=== PATIENT | female | born 1935 | race Caucasian/White ===

== ENCOUNTER 2019-07-11 15:55 | Emergency (ER) | payer MEDICARE, MEDICAID ==
[~2019-07-11] VITALS: Ht 152.4 cm; Wt 68.0 kg
[2019-07-11 16:07] VITALS: BP_SYST 150
--- NOTE | 2019-07-11 16:19 | NUR ---
Patient to ER bed 8 to gown for evaluation. Side rails up. Report given to Brittany BERNSTEIN.
--- NOTE | 2019-07-11 16:20 | NUR ---
ER at bedside examining patient.
[2019-07-11] MEDS ORDERED: NACL 0.9% 1,000 ML IV ONE (16:25)
--- NOTE | 2019-07-11 16:25 | NUR ---
Patient transported to radiology via GURNEY, accompanied by RAD STAFF.
--- NOTE | 2019-07-11 16:25 | NUR ---
Royer jaramillo in EDM - 07/11/19 at 2016 by [email or web address] md SAVANNAH Nuñez at bedside examining patient.
[2019-07-11] MEDS ORDERED: LORazepam 2 MG/ML VIAL (FOR ER USE) IM ONE (16:30)
--- NOTE | 2019-07-11 16:40 | NUR ---
Returned from radiology, back to [facility].
[2019-07-11 17:09] LABS: BASOPHILS % (AUTO) 0.3 % (0.0-2.0); EOSINOPHILS # (AUTO) 0.1 K/uL (0.0-0.4); EOSINOPHILS % (AUTO) 0.9 % (0.0-4.0); HEMATOCRIT 36.4 % (36-48); HEMOGLOBIN 12.2 g/dL (12.0-16.0); LYMPHOCYTES # (AUTO) 2.4 K/uL (1.0-5.5); LYMPHOCYTES % (AUTO) 17.9 % (20.5-51.5); MEAN CORPUSCULAR HEMOGLOBIN 30 pg (27-31); MEAN CORPUSCULAR HGB CONC 34 % (32-36); MEAN CORPUSCULAR VOLUME 89 fL (79.0-98.0); MONOCYTES # (AUTO) 1.2 K/uL (0.0-1.0); MONOCYTES % (AUTO) 8.9 % (1.7-9.3); NEUTROPHILS # (AUTO) 9.6 K/uL (1.8-7.7); PLATELET COUNT (AUTO) 303 K/uL (130-430); RED BLOOD CELL COUNT(AUTO) 4.12 MIL/uL (4.2-6.2); RED CELL DISTRIBUTION WIDTH 11.9 % (9.0-15.0); WHITE BLOOD COUNT (AUTO) 13.4 K/uL (4.8-10.8)
--- NOTE | 2019-07-11 17:20 | NUR ---
ASSISTED TO RESTROOM. PT AMBULATES WITH STEADY GAIT
[2019-07-11 17:21] LABS: ANION GAP 15 (5-15); CALCIUM 9.2 mg/dL (8.4-11.0); CHLORIDE 102 mmol/L (98-107); CREATININE 2.05 mg/dL (0.55-1.30); GLUCOSE 152 mg/dL (70-99); POTASSIUM 4.1 mmol/L (3.5-5.1); SODIUM SERUM 137 mmol/L (136-145); UREA NITROGEN, BLOOD 34 mg/dL (8-21)
[2019-07-11 17:30] LABS: ALANINE AMINOTRANSFERASE 28 U/L (12-78); ALBUMIN 3.5 g/dL (3.4-4.8); ASPARTATE AMINOTRANSFERASE 18 U/L (10-37); TOTAL BILIRUBIN 0.3 mg/dL (0.0-1.0)
[2019-07-11 18:51] LABS: BILIRUBIN,URINE NEGATIVE (NEGATIVE); BLOOD, URINE NEGATIVE (NEGATIVE); CLARITY/URINE CLEAR (CLEAR); COLOR,URINE YELLOW (YELLOW); GLUCOSE,URINE NEGATIVE (NEGATIVE); KETONES,URINE NEGATIVE (NEGATIVE); LEUKOCYTE ESTERASE ,URINE 2+ (NEGATIVE); NITRITE, URINE NEGATIVE (NEGATIVE); PH,URINE 5.5 (5.0-8.0); PROTEIN URINE NEGATIVE (NEGATIVE); UROBILINOGEN,URINE 0.2 (0.2-1.0)
[2019-07-11 19:07] LABS: BACTERIA,URINE FEW /HPF (None Seen); FINE GRANULAR CASTS,URINE 0-10 /LPF (None Seen); MUCUS,URINE 1+ /LPF (None Seen); RBC,URINE 0-3 /HPF (0-3)
[2019-07-11] MEDS ORDERED: cefTRIAXone 1 GM in D5W 50 ML IV ONE (19:15)
--- NOTE | 2019-07-11 19:15 | NUR ---
pt resting comfortably, fluids infusing. pt tolerating well.
[2019-07-11] MEDS ORDERED: cefTRIAXone 1 GM VIAL ONE (19:34)
[2019-07-11 21:04] VITALS: BP_SYST 140
--- NOTE | 2019-07-11 21:04 | NUR ---
Patient given written and verbal discharge instructions and verbalizes understanding. ER MD discussed with patient the results and treatment provided. Patient in stable condition. ID arm band removed. IV catheter removed intact and dressing applied, no active bleeding. Rx of keflex given. Patient educated on pain management and to follow up with PMD. Pt states no pain upon discharge Opportunity for questions provided and answered. Medication side effect fact sheet provided.
== END 2019-07-11 21:04 | disposition home or self-care (01) ==
LOC: SED 15:55
DX: S00.01XA Abrasion of scalp, initial encounter (principal); N39.0 Urinary tract infection, site not specified; I10 Essential (primary) hypertension; E86.0 Dehydration; W01.0XXA Fall on same level from slipping, tripping and stumbling without subsequent striking against object, initial encounter; Y93.89 Activity, other specified; Y92.89 Other specified places as the place of occurrence of the external cause; Y99.8 Other external cause status
CPT/HCPCS: 36415; 70450; 80053; 81000; 84484; 85025; 87086; 93005; 96361; 96365; 96374; 99284; J0696; J2060; 96372

== ENCOUNTER 2023-09-13 16:24 | Inpatient (IN) | payer OTHER, MEDICAID ==
[~2023-09-13] VITALS: Ht 152.4 cm; Wt 83.6 kg
[2023-09-13] VITALS (9 sets, daily range): BP systolic 95–132; PULSE 69–70; RESP 6–18; TEMP 97.9; O2SAT 84–99
[~2023-09-13 16:24] MED LIST: ARIP5TAB42 GT; DIVA-72 GT; FAMO-268 GT; FURO20TA4 GT; METH-373 GT; METO-540 GT; POTA-360 GT
[2023-09-13] MEDS ORDERED: NALOXONE HCL 2 MG/2 ML SYR ONE (16:27)
[2023-09-13] MEDS ORDERED: PROPOFOL DRIP 100 ML IV ONE ×2 (16:33→16:45)
[2023-09-13] MEDS ORDERED: fentaNYL CITRATE/PF 100 MCG/2 ML AMP IVP ONE (16:45)
[2023-09-13 17:08] LABS: BASOPHILS % (AUTO) 0.3 % (0.0-2.0); EOSINOPHILS # (AUTO) 0.1 K/uL (0.0-0.4); EOSINOPHILS % (AUTO) 0.7 % (0.0-4.0); HEMOGLOBIN 9.1 g/dL (12.0-16.0); LYMPHOCYTES # (AUTO) 0.9 K/uL (1.0-5.5); LYMPHOCYTES % (AUTO) 9.1 % (20.5-51.5); MEAN CORPUSCULAR HEMOGLOBIN 31 pg (27-31); MEAN CORPUSCULAR HGB CONC 33 % (32-36); MEAN CORPUSCULAR VOLUME 95 fL (79.0-98.0); MONOCYTES # (AUTO) 0.9 K/uL (0.0-1.0); NEUTROPHILS % (AUTO) 80.9 % (40.0-70.0); PLATELET COUNT (AUTO) 129 K/uL (130-430); RED BLOOD CELL COUNT(AUTO) 2.96 MIL/uL (4.2-6.2); RED CELL DISTRIBUTION WIDTH 17.9 % (9.0-15.0); WHITE BLOOD COUNT (AUTO) 9.9 K/uL (4.8-10.8)
[2023-09-13 17:13] LABS: PROTHROMBIN TIME 10.8 SECS (9.5-12.5)
[2023-09-13 17:14] LABS: ANION GAP 1 (5-15); CALCIUM 9.7 mg/dL (8.4-11.0); CARBON DIOXIDE 34 mmol/L (23-29); CHLORIDE 100 mmol/L (98-107); CREATININE 1.36 mg/dL (0.55-1.30); GLUCOSE 155 mg/dL (74-106); POTASSIUM 5.5 mmol/L (3.5-5.1); SODIUM SERUM 135 mmol/L (136-145); UREA NITROGEN, BLOOD 47 mg/dL (8-21)
[2023-09-13 17:33] LABS: ACETAMINOPHEN 1 ug/mL (1-30); ALANINE AMINOTRANSFERASE 18 U/L (12-78); ALBUMIN 2.4 g/dL (3.4-4.8); ASPARTATE AMINOTRANSFERASE 15 U/L (10-37); CREATINE KINASE, TOTAL 14 U/L (26-192); SALICYLATE < 1 mg/dL (3-30); TOTAL BILIRUBIN 0.4 mg/dL (0.0-1.0); TOTAL PROTEIN, SERUM 6.2 g/dL (6.4-8.3)
[2023-09-13 17:38] LABS: ABG O2 SAT% ESTIMATE 99.6 % (94.0-100.0); ALLEN'S TEST POSITIVE (P); BLOOD GAS BASE EXCESS 3.8 mmol/L (-3.0-3.0); BLOOD GAS HCO3 30.7 mmol/L (21.0-27.0); BLOOD GAS PCO2 55.4 mmHg (35.0-45.0); BLOOD GAS PH 7.362 (7.350-7.450)
[2023-09-13 17:45] LABS: ALCOHOL, BLOOD < 3 mg/dL (<10)
[2023-09-13 17:52] LABS: ACETONE, SERUM NEGATIVE (NEGATIVE)
[2023-09-13] MEDS ORDERED: AZITHROMYCIN 500 MG in NS 250 ML IV SCH (18:15)
[2023-09-13] MEDS ORDERED: HYDR25TA4 GT (18:30)
[2023-09-13] MEDS ORDERED: MULT1CAP34 GT (18:30)
[2023-09-13] MEDS ORDERED: ASCO500C18 GT (18:30)
[2023-09-13] MEDS ORDERED: IPRA3AMP9 INH (18:30)
[2023-09-13] MEDS ORDERED: LOSA50TA28 GT (18:30)
[2023-09-13] MEDS ORDERED: AMIN30LI51 PO (18:30)
[2023-09-13] MEDS ORDERED: HYDR-4039 GT (18:30)
[2023-09-13] MEDS ORDERED: CLON0.1T GT (18:30)
[2023-09-13] MEDS ORDERED: cefTRIAXone 2 GM VIAL ONE (18:45)
[2023-09-13] MEDS ORDERED: AZITHROMYCIN 500 MG/VIAL (ZITHROMAX) IV ONE (18:45)
[2023-09-13] MEDS ORDERED: NACL 0.9% 1,000 ML IV ONE (20:15)
[2023-09-13] MEDS ORDERED: IPRATROPIUM/ALBUTEROL SULFATE 3 ML AMPUL.NEB (DUONEB) INH SCH (20:45)
[2023-09-13] MEDS: LevALBUTEROL HCL 1.25 MG/0.5 ML *CONC.* VIAL.NEB (XOPENEX CONC.) INH SCH (20:45)
[2023-09-13] MEDS ORDERED: LevALBUTEROL HCL 1.25 MG/0.5 ML *CONC.* VIAL.NEB (XOPENEX CONC.) INH PRN (20:45)
[2023-09-13] MEDS ORDERED: POTASSIUM CHLORIDE 10 MEQ in NACL 0.9% 1,000 ML IV SCH (21:15)
[2023-09-13] MEDS ORDERED: ONDANSETRON HCL 4 MG/2 ML VIAL IVP PRN (21:15)
[2023-09-13 21:43] LABS: BLOOD GAS HCO3 27.9 mmol/L (21.0-27.0); BLOOD GAS PCO2 38.4 mmHg (35.0-45.0); BLOOD GAS PH 7.479 (7.350-7.450); BLOOD GAS PO2 222.8 mmHg (75.0-100.0)
[2023-09-13 21:44] LABS: ABG O2 SAT% ESTIMATE 99.5 % (94.0-100.0); ALLEN'S TEST POSITIVE (P); BLOOD GAS BASE EXCESS 4.3 mmol/L (-3.0-3.0)
[2023-09-13] MEDS: ENOXAPARIN SODIUM 30 MG/0.3 ML SYRINGE SUBCUT SCH (22:08)
[2023-09-13] MEDS ORDERED: PIPERACILLIN/TAZOBACTAM 3.375 GM/VIAL (ZOSYN) IV ONE (22:13)
[2023-09-13] MEDS ORDERED: PANTOPRAZOLE SODIUM 40 MG/VIAL (PROTONIX) ONE (22:26)
[2023-09-13] MEDS: PANTOPRAZOLE SODIUM 40 MG/VIAL (PROTONIX) IVP SCH (22:32)
[2023-09-13] MEDS: NACL 0.9% 1,000 ML IV SCH (22:33)
[2023-09-13] MEDS: methylPREDNISolone SOD SUCC/PF 62.5 MG/ML VIAL IVP SCH (23:41)
[2023-09-13] MEDS: PROPOFOL DRIP 100 ML IV PRN (23:42)
[2023-09-13] MEDS: PIPERACILLIN/TAZO 3.375/DEX-IS 50 ML IV SCH (23:43)
[2023-09-14] VITALS (35 sets, daily range): BP systolic 101–140; PULSE 69–71; RESP 17–19; TEMP 98–98.8; O2SAT 91–98
[2023-09-14] MEDS ORDERED: D5W 1,000 ML IV PRN
[2023-09-14] MEDS ORDERED: GLUCOSE (DEXTROSE) ORAL GEL -Adults PO PRN
[2023-09-14] MEDS ORDERED: DEXTROSE 50% JECT 50 ML DISP.SYRIN IVP PRN
[2023-09-14] MEDS: LevALBUTEROL HCL 1.25 MG/0.5 ML *CONC.* VIAL.NEB (XOPENEX CONC.) INH SCH ×4 (01:54→19:21)
[2023-09-14 04:48] LABS: BASOPHILS % (AUTO) 0.4 % (0.0-2.0); EOSINOPHILS % (AUTO) 0.6 % (0.0-4.0); HEMATOCRIT 24.3 % (36-48); HEMOGLOBIN 7.8 g/dL (12.0-16.0); LYMPHOCYTES # (AUTO) 0.7 K/uL (1.0-5.5); MEAN CORPUSCULAR HEMOGLOBIN 30 pg (27-31); MEAN CORPUSCULAR HGB CONC 32 % (32-36); MEAN CORPUSCULAR VOLUME 94 fL (79.0-98.0); MONOCYTES # (AUTO) 0.3 K/uL (0.0-1.0); MONOCYTES % (AUTO) 5.9 % (1.7-9.3); NEUTROPHILS # (AUTO) 4.4 K/uL (1.8-7.7); NEUTROPHILS % (AUTO) 80.1 % (40.0-70.0); PLATELET COUNT (AUTO) 84 K/uL (130-430); RED BLOOD CELL COUNT(AUTO) 2.58 MIL/uL (4.2-6.2); WHITE BLOOD COUNT (AUTO) 5.5 K/uL (4.8-10.8)
[2023-09-14 05:17] LABS: ANION GAP 6 (5-15); CALCIUM 9.3 mg/dL (8.4-11.0); CARBON DIOXIDE 29 mmol/L (23-29); CHLORIDE 100 mmol/L (98-107); CREATININE 1.63 mg/dL (0.55-1.30); GLUCOSE 101 mg/dL (74-106); POTASSIUM 4.8 mmol/L (3.5-5.1); SODIUM SERUM 135 mmol/L (136-145); UREA NITROGEN, BLOOD 50 mg/dL (8-21)
[2023-09-14 05:25] LABS: CLARITY/URINE SLIGHTLY CLOUDY (CLEAR); COLOR,URINE YELLOW (YELLOW); GLUCOSE,URINE NEGATIVE (NEGATIVE); KETONES,URINE TRACE (NEGATIVE); PROTEIN URINE 2+ (NEGATIVE)
[2023-09-14 05:26] LABS: BILIRUBIN,URINE 1+ (NEGATIVE); BLOOD, URINE 2+ (NEGATIVE); LEUKOCYTE ESTERASE ,URINE TRACE (NEGATIVE); NITRITE, URINE NEGATIVE (NEGATIVE); UROBILINOGEN,URINE 0.2 (0.2-1.0)
[2023-09-14 05:28] LABS: BACTERIA,URINE RARE /HPF (None Seen)
[2023-09-14 05:30] LABS: RBC,URINE 20-50 /HPF (0-3)
[2023-09-14 05:30] LABS: ALANINE AMINOTRANSFERASE 15 U/L (12-78); ASPARTATE AMINOTRANSFERASE 18 U/L (10-37); TOTAL BILIRUBIN 0.6 mg/dL (0.0-1.0); TOTAL PROTEIN, SERUM 5.4 g/dL (6.4-8.3)
[2023-09-14 05:42] LABS: BARBITURATE, URINE NEGATIVE (NEG <=200); BENZODIAZEPINE, URINE NEGATIVE (NEG <=150); CANNABINOID, URINE NEGATIVE (NEG <=50); COCAINE, URINE NEGATIVE (NEG <=150); METHAMPHETAMINES SCREEN,URINE NEGATIVE (NEG <=500); OPIATE, URINE NEGATIVE (NEG <=100); PHENCYCLIDINE SCREEN,URINE NEGATIVE (NEG <=25); URINE AMPHETAMINE NEGATIVE (NEG <=500); URINE METHADONE NEGATIVE (NEG <=200); URINE OXYCODONE SCREEN NEGATIVE (NEG <=100); URINE PROPOXYPHENE SCREEN NEGATIVE (NEG <=300)
[2023-09-14 05:43] LABS: UR TRICYCLIC ANTIDEPRESSANTS NEGATIVE (NEG <=300)
[2023-09-14] MEDS: methylPREDNISolone SOD SUCC/PF 62.5 MG/ML VIAL IVP SCH (06:36)
[2023-09-14] MEDS: PIPERACILLIN/TAZO 3.375/DEX-IS 50 ML IV SCH (06:36)
[2023-09-14] MEDS: NACL 0.9% 1,000 ML IV SCH (06:47)
[2023-09-14] MEDS: PROPOFOL DRIP 100 ML IV PRN ×3 (06:49→22:57)
[2023-09-14] MEDS: ASCORBIC ACID 500 MG TABLET GT SCH (08:47)
[2023-09-14] MEDS: PANTOPRAZOLE SODIUM 40 MG/VIAL (PROTONIX) IVP SCH ×2 (08:47→20:05)
[2023-09-14] MEDS: methIMAzole 5 MG TABLET GT SCH (08:47)
[2023-09-14] MEDS: MULTIVITAMINS TAB 1 TABLET GT SCH (08:47)
[2023-09-14] MEDS ORDERED: PROTEIN HYDROLYS PO SCH (09:00)
[2023-09-14] MEDS ORDERED: METOPROLOL SUCCINATE 25 MG TAB.SR.24H (TOPROL XL) PO SCH (09:00)
[2023-09-14] MEDS ORDERED: AMINO ACIDS PO SCH (09:00)
[2023-09-14] MEDS ORDERED: [UNRECOGNIZED DRUG - OTHER] PO SCH (09:00)
[2023-09-14] MEDS ORDERED: DIVALPROEX SODIUM 250 MG TABLET(DEPAKOTE) PO SCH (09:00)
[2023-09-14] MEDS: VANCOMYCIN HCL 1,250 MG in NS 250 ML IV SCH (11:42)
[2023-09-14] MEDS: metroNIDAZOLE 500 mg/NS 100 ML IV SCH ×2 (11:43→23:29)
[2023-09-14] MEDS: METHYLPREDNISOLONE SOD SUCC 40 MG/ML VIAL IVP SCH ×3 (11:43→23:30)
[2023-09-14] MEDS: CEFEPIME 2 GM in D5W 100 ML IV SCH (13:22)
[2023-09-14] MEDS ORDERED: FUROSEMIDE 20 MG/2 ML VIAL IVP ONE (18:30)
[2023-09-14] MEDS: ENOXAPARIN SODIUM 30 MG/0.3 ML SYRINGE SUBCUT SCH (20:05)
[2023-09-15] VITALS (36 sets, daily range): BP systolic 100–139; PULSE 69–80; RESP 17–20; TEMP 97–98.6; O2SAT 93–99
[2023-09-15] MEDS ORDERED: FUROSEMIDE 20 MG/2 ML VIAL IVP ONE (01:00)
[2023-09-15] MEDS: LevALBUTEROL HCL 1.25 MG/0.5 ML *CONC.* VIAL.NEB (XOPENEX CONC.) INH SCH ×4 (01:16→19:36)
[2023-09-15] MEDS: METHYLPREDNISOLONE SOD SUCC 40 MG/ML VIAL IVP SCH ×4 (05:03→23:46)
[2023-09-15 05:22] LABS: BASOPHILS % (AUTO) 0.2 % (0.0-2.0); EOSINOPHILS % (AUTO) 0.3 % (0.0-4.0); HEMATOCRIT 23.7 % (36-48); HEMOGLOBIN 7.8 g/dL (12.0-16.0); LYMPHOCYTES # (AUTO) 0.5 K/uL (1.0-5.5); LYMPHOCYTES % (AUTO) 9.9 % (20.5-51.5); MEAN CORPUSCULAR HEMOGLOBIN 30 pg (27-31); MEAN CORPUSCULAR HGB CONC 33 % (32-36); MEAN CORPUSCULAR VOLUME 92 fL (79.0-98.0); MONOCYTES # (AUTO) 0.4 K/uL (0.0-1.0); MONOCYTES % (AUTO) 8.2 % (1.7-9.3); NEUTROPHILS # (AUTO) 3.9 K/uL (1.8-7.7); NEUTROPHILS % (AUTO) 81.4 % (40.0-70.0); PLATELET COUNT (AUTO) 104 K/uL (130-430); RED BLOOD CELL COUNT(AUTO) 2.58 MIL/uL (4.2-6.2); RED CELL DISTRIBUTION WIDTH 18.5 % (9.0-15.0); WHITE BLOOD COUNT (AUTO) 4.7 K/uL (4.8-10.8)
[2023-09-15 05:49] LABS: ALANINE AMINOTRANSFERASE 14 U/L (12-78); ALBUMIN 2.1 g/dL (3.4-4.8); ANION GAP 11 (5-15); ASPARTATE AMINOTRANSFERASE 16 U/L (10-37); CALCIUM 9.4 mg/dL (8.4-11.0); CARBON DIOXIDE 23 mmol/L (23-29); CHLORIDE 100 mmol/L (98-107); CREATININE 2.16 mg/dL (0.55-1.30); GLUCOSE 195 mg/dL (74-106); POTASSIUM 3.9 mmol/L (3.5-5.1); SODIUM SERUM 134 mmol/L (136-145); TOTAL BILIRUBIN 0.5 mg/dL (0.0-1.0); TOTAL PROTEIN, SERUM 5.7 g/dL (6.4-8.3); UREA NITROGEN, BLOOD 64 mg/dL (8-21)
[2023-09-15] MEDS: PROPOFOL DRIP 100 ML IV PRN ×3 (05:54→19:42)
[2023-09-15 05:57] LABS: TOTAL IRON BIND. CAPACITY 245 ug/dL (250-450)
[2023-09-15] MEDS: methIMAzole 5 MG TABLET GT SCH (09:01)
[2023-09-15] MEDS: ASCORBIC ACID 500 MG TABLET GT SCH (09:01)
[2023-09-15] MEDS: PANTOPRAZOLE SODIUM 40 MG/VIAL (PROTONIX) IVP SCH ×2 (09:01→20:29)
[2023-09-15] MEDS: MULTIVITAMINS TAB 1 TABLET GT SCH (09:01)
[2023-09-15 09:49] LABS: ABG O2 SAT% ESTIMATE 98.3 % (94.0-100.0); ALLEN'S TEST POSITIVE (P); BLOOD GAS BASE EXCESS -1.4 mmol/L (-3.0-3.0); BLOOD GAS HCO3 20.5 mmol/L (21.0-27.0); BLOOD GAS PCO2 27.9 mmHg (35.0-45.0); BLOOD GAS PH 7.485 (7.350-7.450); BLOOD GAS PO2 106.5 mmHg (75.0-100.0)
[2023-09-15] MEDS ORDERED: DOPamine PREMIX 250 ML IV SCH (10:00)
[2023-09-15] MEDS: NACL 0.9% 1,000 ML IV SCH (11:29)
[2023-09-15] MEDS: metroNIDAZOLE 500 mg/NS 100 ML IV SCH ×2 (12:51→23:46)
[2023-09-15] MEDS: CEFEPIME 2 GM in D5W 100 ML IV SCH (14:47)
[2023-09-15] MEDS: ENOXAPARIN SODIUM 30 MG/0.3 ML SYRINGE SUBCUT SCH (20:30)
[2023-09-16] VITALS (37 sets, daily range): BP systolic 108–193; PULSE 69–75; RESP 18–23; TEMP 96.8–98.7; O2SAT 88–99
[2023-09-16] MEDS: LevALBUTEROL HCL 1.25 MG/0.5 ML *CONC.* VIAL.NEB (XOPENEX CONC.) INH SCH ×4 (01:23→19:40)
[2023-09-16] MEDS: PROPOFOL DRIP 100 ML IV PRN ×2 (02:16→10:48)
[2023-09-16 04:17] LABS: BASOPHILS % (AUTO) 0.2 % (0.0-2.0); HEMATOCRIT 23.5 % (36-48); HEMOGLOBIN 7.7 g/dL (12.0-16.0); LYMPHOCYTES # (AUTO) 0.4 K/uL (1.0-5.5); LYMPHOCYTES % (AUTO) 9.6 % (20.5-51.5); MEAN CORPUSCULAR HEMOGLOBIN 30 pg (27-31); MEAN CORPUSCULAR HGB CONC 33 % (32-36); MEAN CORPUSCULAR VOLUME 92 fL (79.0-98.0); MONOCYTES # (AUTO) 0.4 K/uL (0.0-1.0); MONOCYTES % (AUTO) 10.6 % (1.7-9.3); NEUTROPHILS # (AUTO) 3.1 K/uL (1.8-7.7); NEUTROPHILS % (AUTO) 79.6 % (40.0-70.0); PLATELET COUNT (AUTO) 108 K/uL (130-430); RED BLOOD CELL COUNT(AUTO) 2.56 MIL/uL (4.2-6.2); RED CELL DISTRIBUTION WIDTH 18.6 % (9.0-15.0)
[2023-09-16 04:48] LABS: ANION GAP 12 (5-15); CALCIUM 8.9 mg/dL (8.4-11.0); CARBON DIOXIDE 24 mmol/L (23-29); CHLORIDE 103 mmol/L (98-107); GLUCOSE 174 mg/dL (74-106); POTASSIUM 3.6 mmol/L (3.5-5.1); SODIUM SERUM 139 mmol/L (136-145); UREA NITROGEN, BLOOD 72 mg/dL (8-21)
[2023-09-16 04:49] LABS: ALANINE AMINOTRANSFERASE 19 U/L (12-78); ASPARTATE AMINOTRANSFERASE 11 U/L (10-37); CREATININE 2.48 mg/dL (0.55-1.30); TOTAL BILIRUBIN 0.5 mg/dL (0.0-1.0); TOTAL PROTEIN, SERUM 5.2 g/dL (6.4-8.3)
[2023-09-16] MEDS: METHYLPREDNISOLONE SOD SUCC 40 MG/ML VIAL IVP SCH ×4 (05:54→23:12)
[2023-09-16 07:57] LABS: INR 1.1 (0.8-1.2); PROTHROMBIN TIME 11.6 SECS (9.5-12.5)
[2023-09-16] MEDS: NACL 0.9% 1,000 ML IV SCH (08:47)
[2023-09-16] MEDS: MULTIVITAMINS TAB 1 TABLET GT SCH (08:48)
[2023-09-16] MEDS: PANTOPRAZOLE SODIUM 40 MG/VIAL (PROTONIX) IVP SCH ×2 (08:48→20:08)
[2023-09-16] MEDS: ASCORBIC ACID 500 MG TABLET GT SCH (08:48)
[2023-09-16] MEDS: methIMAzole 5 MG TABLET GT SCH (08:48)
[2023-09-16] MEDS ORDERED: DOPamine PREMIX 250 ML IV PRN (09:00)
[2023-09-16 09:26] LABS: ABG O2 SAT% ESTIMATE 96.6 % (94.0-100.0); BLOOD GAS BASE EXCESS -1.5 mmol/L (-3.0-3.0); BLOOD GAS HCO3 20.4 mmol/L (21.0-27.0); BLOOD GAS PCO2 27.6 mmHg (35.0-45.0); BLOOD GAS PH 7.487 (7.350-7.450); BLOOD GAS PO2 78.3 mmHg (75.0-100.0)
[2023-09-16 09:27] LABS: ALLEN'S TEST POSITIVE (P)
[2023-09-16 10:07] LABS: FOLATE (FOLIC ACID) 4.9 ng/mL (>3.0)
[2023-09-16] MEDS: VANCOMYCIN HCL 1,250 MG in NS 250 ML IV SCH (10:45)
[2023-09-16] MEDS: INSULIN REGULAR, HUMAN 100 UNITS/ML, 3 ML VIAL (humuLIN R) SUBCUT PRN ×2 (12:52→18:00)
[2023-09-16] MEDS ORDERED: RACEPINEPHRINE HCL 0.5 ML VIAL.NEB INH ONE ×2 (13:20→13:45)
[2023-09-16] MEDS: CEFEPIME 2 GM in D5W 100 ML IV SCH (13:48)
[2023-09-16] MEDS: metroNIDAZOLE 500 mg/NS 100 ML IV SCH ×2 (13:48→23:12)
[2023-09-16] MEDS ORDERED: FUROSEMIDE 20 MG/2 ML VIAL IVP ONE (14:00)
[2023-09-16] MEDS: ENOXAPARIN SODIUM 30 MG/0.3 ML SYRINGE SUBCUT SCH (20:09)
[2023-09-17] VITALS (36 sets, daily range): BP systolic 90–172; PULSE 69–74; RESP 18–27; TEMP 96.4–97.8; O2SAT 94–98
[2023-09-17] MEDS: INSULIN REGULAR, HUMAN 100 UNITS/ML, 3 ML VIAL (humuLIN R) SUBCUT PRN ×5 (00:08→23:43)
[2023-09-17] MEDS: LevALBUTEROL HCL 1.25 MG/0.5 ML *CONC.* VIAL.NEB (XOPENEX CONC.) INH SCH ×4 (00:50→19:45)
[2023-09-17] MEDS: NACL 0.9% 1,000 ML IV SCH ×2 (03:00→06:40)
[2023-09-17] MEDS: PROPOFOL DRIP 100 ML IV PRN ×2 (03:06→13:08)
[2023-09-17 05:27] LABS: ALANINE AMINOTRANSFERASE 27 U/L (12-78); ALBUMIN 2.2 g/dL (3.4-4.8); ANION GAP 13 (5-15); ASPARTATE AMINOTRANSFERASE 16 U/L (10-37); CALCIUM 9.1 mg/dL (8.4-11.0); CARBON DIOXIDE 21 mmol/L (23-29); CHLORIDE 105 mmol/L (98-107); CREATININE 2.78 mg/dL (0.55-1.30); GLUCOSE 211 mg/dL (74-106); POTASSIUM 3.7 mmol/L (3.5-5.1); SODIUM SERUM 139 mmol/L (136-145); TOTAL BILIRUBIN 0.8 mg/dL (0.0-1.0); TOTAL PROTEIN, SERUM 5.7 g/dL (6.4-8.3); UREA NITROGEN, BLOOD 85 mg/dL (8-21)
[2023-09-17] MEDS: METHYLPREDNISOLONE SOD SUCC 40 MG/ML VIAL IVP SCH ×4 (05:50→23:43)
[2023-09-17 08:31] LABS: BASOPHILS % (AUTO) 0.1 % (0.0-2.0); EOSINOPHILS % (AUTO) 0.1 % (0.0-4.0); HEMATOCRIT 31.8 % (36-48); HEMOGLOBIN 10.3 g/dL (12.0-16.0); LYMPHOCYTES # (AUTO) 0.4 K/uL (1.0-5.5); LYMPHOCYTES % (AUTO) 6.4 % (20.5-51.5); MEAN CORPUSCULAR HEMOGLOBIN 30 pg (27-31); MEAN CORPUSCULAR HGB CONC 32 % (32-36); MEAN CORPUSCULAR VOLUME 93 fL (79.0-98.0); MONOCYTES # (AUTO) 0.6 K/uL (0.0-1.0); MONOCYTES % (AUTO) 8.9 % (1.7-9.3); NEUTROPHILS % (AUTO) 84.5 % (40.0-70.0); PLATELET COUNT (AUTO) 134 K/uL (130-430); RED BLOOD CELL COUNT(AUTO) 3.43 MIL/uL (4.2-6.2); RED CELL DISTRIBUTION WIDTH 17.1 % (9.0-15.0)
[2023-09-17] MEDS ORDERED: FUROSEMIDE 20 MG/2 ML VIAL IVP ONE (08:45)
[2023-09-17] MEDS: PANTOPRAZOLE SODIUM 40 MG/VIAL (PROTONIX) IVP SCH ×2 (08:53→20:53)
[2023-09-17] MEDS: ASCORBIC ACID 500 MG TABLET GT SCH (08:54)
[2023-09-17] MEDS: MULTIVITAMINS TAB 1 TABLET GT SCH (08:55)
[2023-09-17] MEDS: methIMAzole 5 MG TABLET GT SCH (08:55)
[2023-09-17] MEDS: cloNIDine HCL 0.1 MG TABLET GT PRN (10:44)
[2023-09-17] MEDS: metroNIDAZOLE 500 mg/NS 100 ML IV SCH ×2 (12:28→23:43)
[2023-09-17] MEDS: CEFEPIME 2 GM in D5W 100 ML IV SCH (14:11)
[2023-09-17] MEDS ORDERED: hydrALAZINE HCL 20 MG/ML VIAL IVP PRN (16:30)
[2023-09-17] MEDS: FUROSEMIDE 20 MG/2 ML VIAL IVP SCH (20:53)
[2023-09-17] MEDS: levETIRAcetam 500 MG in NS 100 ML IV SCH (20:53)
[2023-09-17] MEDS: ENOXAPARIN SODIUM 30 MG/0.3 ML SYRINGE SUBCUT SCH (20:54)
[2023-09-18] VITALS (35 sets, daily range): BP systolic 100–126; PULSE 65–74; RESP 17–19; TEMP 96.8–98.2; O2SAT 94–99
[2023-09-18] MEDS: LevALBUTEROL HCL 1.25 MG/0.5 ML *CONC.* VIAL.NEB (XOPENEX CONC.) INH SCH ×4 (00:30→19:23)
[2023-09-18 05:35] LABS: ALANINE AMINOTRANSFERASE 24 U/L (12-78); ALBUMIN 2.1 g/dL (3.4-4.8); ANION GAP 14 (5-15); ASPARTATE AMINOTRANSFERASE 12 U/L (10-37); CALCIUM 8.7 mg/dL (8.4-11.0); CARBON DIOXIDE 21 mmol/L (23-29); CHLORIDE 102 mmol/L (98-107); CREATININE 3.29 mg/dL (0.55-1.30); GLUCOSE 185 mg/dL (74-106); POTASSIUM 3.8 mmol/L (3.5-5.1); SODIUM SERUM 137 mmol/L (136-145); TOTAL BILIRUBIN 0.6 mg/dL (0.0-1.0); UREA NITROGEN, BLOOD 99 mg/dL (8-21); VANCOMYCIN,RANDOM 21.4 ug/mL (20.0-30.0)
[2023-09-18 05:39] LABS: BASOPHILS # (AUTO) 0.1 K/uL (0.0-0.2); BASOPHILS % (AUTO) 1.3 % (0.0-2.0); EOSINOPHILS # (AUTO) 0.1 K/uL (0.0-0.4); EOSINOPHILS % (AUTO) 0.6 % (0.0-4.0); HEMATOCRIT 32.3 % (36-48); HEMOGLOBIN 10.8 g/dL (12.0-16.0); LYMPHOCYTES # (AUTO) 0.7 K/uL (1.0-5.5); LYMPHOCYTES % (AUTO) 8.3 % (20.5-51.5); MEAN CORPUSCULAR HEMOGLOBIN 31 pg (27-31); MEAN CORPUSCULAR HGB CONC 34 % (32-36); MEAN CORPUSCULAR VOLUME 93 fL (79.0-98.0); MONOCYTES # (AUTO) 0.8 K/uL (0.0-1.0); MONOCYTES % (AUTO) 9.3 % (1.7-9.3); NEUTROPHILS # (AUTO) 7.3 K/uL (1.8-7.7); NEUTROPHILS % (AUTO) 80.5 % (40.0-70.0); PLATELET COUNT (AUTO) 186 K/uL (130-430); RED BLOOD CELL COUNT(AUTO) 3.46 MIL/uL (4.2-6.2); RED CELL DISTRIBUTION WIDTH 17.3 % (9.0-15.0)
[2023-09-18] MEDS: METHYLPREDNISOLONE SOD SUCC 40 MG/ML VIAL IVP SCH ×3 (05:54→18:01)
[2023-09-18] MEDS: INSULIN REGULAR, HUMAN 100 UNITS/ML, 3 ML VIAL (humuLIN R) SUBCUT PRN ×3 (05:55→18:00)
[2023-09-18] MEDS: MULTIVITAMINS TAB 1 TABLET GT SCH (09:18)
[2023-09-18] MEDS: FUROSEMIDE 20 MG/2 ML VIAL IVP SCH (09:18)
[2023-09-18] MEDS: ASCORBIC ACID 500 MG TABLET GT SCH (09:18)
[2023-09-18] MEDS: levETIRAcetam 500 MG in NS 100 ML IV SCH (09:18)
[2023-09-18] MEDS: methIMAzole 5 MG TABLET GT SCH (09:18)
[2023-09-18] MEDS: PANTOPRAZOLE SODIUM 40 MG/VIAL (PROTONIX) IVP SCH (09:19)
[2023-09-18] MEDS: VANCOMYCIN HCL 1,250 MG in NS 250 ML IV SCH (10:05)
[2023-09-18 12:06] LABS: ANTI-SMOOTH MUSCLE AB 7 Units (0-19)
[2023-09-18] MEDS: metroNIDAZOLE 500 mg/NS 100 ML IV SCH (13:03)
[2023-09-18] MEDS: PROPOFOL DRIP 100 ML IV PRN (13:03)
[2023-09-18] MEDS: CEFEPIME 2 GM in D5W 100 ML IV SCH (13:05)
[2023-09-18 15:06] LABS: ANTI NUCLEAR AB WITH REFLEX Negative (Negative); ATYPICAL pANCA <1:20 titer (Neg:<1:20); CYTOPLASMIC (C-ANCA) <1:20 titer (Neg:<1:20); CYTOPLASMIC (P-ANCA) <1:20 titer (Neg:<1:20)
[2023-09-18] MEDS ORDERED: MICAFUNGIN SODIUM 50 MG in NS 50 ML IV SCH (17:30)
[2023-09-18] MEDS ORDERED: HEPARIN SODIUM,PORCINE 5,000 UNITS/ML VIAL ONE ×2 (18:11→18:57)
[2023-09-18] MEDS ORDERED: LIDOCAINE 1%, 20 ML MDV 0 ML ONE (18:15)
[2023-09-18] MEDS ORDERED: HEPARIN SODIUM, PORCINE 10,000 UNITS/ 10 ML VIAL MC ONE (18:45)
[2023-09-19] VITALS (37 sets, daily range): BP systolic 104–155; PULSE 69–75; RESP 16–21; TEMP 96.8–97.8; O2SAT 94–99
[2023-09-19] MEDS: METHYLPREDNISOLONE SOD SUCC 40 MG/ML VIAL IVP SCH ×4 (00:18→18:08)
[2023-09-19] MEDS: ENOXAPARIN SODIUM 30 MG/0.3 ML SYRINGE SUBCUT SCH ×2 (00:19→22:37)
[2023-09-19] MEDS: PANTOPRAZOLE SODIUM 40 MG/VIAL (PROTONIX) IVP SCH ×3 (00:19→22:37)
[2023-09-19] MEDS: FUROSEMIDE 20 MG/2 ML VIAL IVP SCH ×3 (00:19→22:37)
[2023-09-19] MEDS: levETIRAcetam 500 MG in NS 100 ML IV SCH ×3 (00:20→22:37)
[2023-09-19] MEDS: INSULIN REGULAR, HUMAN 100 UNITS/ML, 3 ML VIAL (humuLIN R) SUBCUT PRN ×4 (01:05→18:05)
[2023-09-19] MEDS: metroNIDAZOLE 500 mg/NS 100 ML IV SCH ×2 (04:00→11:46)
[2023-09-19 05:39] LABS: BASOPHILS % (AUTO) 0.1 % (0.0-2.0); EOSINOPHILS % (AUTO) 0.1 % (0.0-4.0); HEMATOCRIT 31.8 % (36-48); HEMOGLOBIN 10.5 g/dL (12.0-16.0); LYMPHOCYTES # (AUTO) 0.5 K/uL (1.0-5.5); LYMPHOCYTES % (AUTO) 5.6 % (20.5-51.5); MEAN CORPUSCULAR HEMOGLOBIN 31 pg (27-31); MEAN CORPUSCULAR HGB CONC 33 % (32-36); MEAN CORPUSCULAR VOLUME 92 fL (79.0-98.0); MONOCYTES # (AUTO) 0.6 K/uL (0.0-1.0); MONOCYTES % (AUTO) 7.8 % (1.7-9.3); NEUTROPHILS # (AUTO) 7.1 K/uL (1.8-7.7); NEUTROPHILS % (AUTO) 86.4 % (40.0-70.0); PLATELET COUNT (AUTO) 200 K/uL (130-430); RED BLOOD CELL COUNT(AUTO) 3.46 MIL/uL (4.2-6.2); RED CELL DISTRIBUTION WIDTH 17.1 % (9.0-15.0); WHITE BLOOD COUNT (AUTO) 8.3 K/uL (4.8-10.8)
[2023-09-19 06:51] LABS: ALANINE AMINOTRANSFERASE 19 U/L (12-78); ALBUMIN 2.1 g/dL (3.4-4.8); ANION GAP 15 (5-15); ASPARTATE AMINOTRANSFERASE 11 U/L (10-37); CALCIUM 8.8 mg/dL (8.4-11.0); CARBON DIOXIDE 20 mmol/L (23-29); CHLORIDE 104 mmol/L (98-107); CREATININE 3.02 mg/dL (0.55-1.30); GLUCOSE 207 mg/dL (74-106); POTASSIUM 3.4 mmol/L (3.5-5.1); SODIUM SERUM 139 mmol/L (136-145); TOTAL BILIRUBIN 0.5 mg/dL (0.0-1.0); TOTAL PROTEIN, SERUM 5.1 g/dL (6.4-8.3); UREA NITROGEN, BLOOD 89 mg/dL (8-21)
[2023-09-19] MEDS: LevALBUTEROL HCL 1.25 MG/0.5 ML *CONC.* VIAL.NEB (XOPENEX CONC.) INH SCH ×4 (07:12→19:42)
[2023-09-19] MEDS: MULTIVITAMINS TAB 1 TABLET GT SCH (08:12)
[2023-09-19] MEDS: ASCORBIC ACID 500 MG TABLET GT SCH (08:12)
[2023-09-19] MEDS: methIMAzole 5 MG TABLET GT SCH (08:14)
[2023-09-19] MEDS: MICAFUNGIN SODIUM 50 MG in NS 50 ML IV SCH (08:18)
[2023-09-19] MEDS: CEFEPIME 2 GM in D5W 100 ML IV SCH (12:38)
[2023-09-19] MEDS: HEPARIN SODIUM,PORCINE 5,000 UNITS/ML VIAL MC PRN (21:23)
[2023-09-20] VITALS (36 sets, daily range): BP systolic 96–146; PULSE 66–79; RESP 11–19; TEMP 97–98; O2SAT 96–98
[2023-09-20] MEDS: METHYLPREDNISOLONE SOD SUCC 40 MG/ML VIAL IVP SCH ×5 (00:11→23:49)
[2023-09-20] MEDS: metroNIDAZOLE 500 mg/NS 100 ML IV SCH ×2 (00:12→11:43)
[2023-09-20] MEDS: INSULIN REGULAR, HUMAN 100 UNITS/ML, 3 ML VIAL (humuLIN R) SUBCUT PRN ×5 (00:22→23:51)
[2023-09-20] MEDS: LevALBUTEROL HCL 1.25 MG/0.5 ML *CONC.* VIAL.NEB (XOPENEX CONC.) INH SCH ×4 (01:27→20:02)
[2023-09-20 05:56] LABS: BASOPHILS % (AUTO) 0.1 % (0.0-2.0); EOSINOPHILS % (AUTO) 0.2 % (0.0-4.0); HEMATOCRIT 34.4 % (36-48); HEMOGLOBIN 11.3 g/dL (12.0-16.0); LYMPHOCYTES # (AUTO) 0.6 K/uL (1.0-5.5); LYMPHOCYTES % (AUTO) 3.9 % (20.5-51.5); MEAN CORPUSCULAR HEMOGLOBIN 30 pg (27-31); MEAN CORPUSCULAR HGB CONC 33 % (32-36); MEAN CORPUSCULAR VOLUME 92 fL (79.0-98.0); MONOCYTES # (AUTO) 1.3 K/uL (0.0-1.0); MONOCYTES % (AUTO) 7.9 % (1.7-9.3); NEUTROPHILS # (AUTO) 14.5 K/uL (1.8-7.7); NEUTROPHILS % (AUTO) 87.9 % (40.0-70.0); PLATELET COUNT (AUTO) 249 K/uL (130-430); RED BLOOD CELL COUNT(AUTO) 3.75 MIL/uL (4.2-6.2); RED CELL DISTRIBUTION WIDTH 16.7 % (9.0-15.0); WHITE BLOOD COUNT (AUTO) 16.4 K/uL (4.8-10.8)
[2023-09-20 06:14] LABS: ANION GAP 16 (5-15); CALCIUM 8.7 mg/dL (8.4-11.0); CARBON DIOXIDE 21 mmol/L (23-29); CHLORIDE 100 mmol/L (98-107); CREATININE 2.73 mg/dL (0.55-1.30); GLUCOSE 214 mg/dL (74-106); POTASSIUM 3.4 mmol/L (3.5-5.1); SODIUM SERUM 137 mmol/L (136-145); UREA NITROGEN, BLOOD 71 mg/dL (8-21)
[2023-09-20] MEDS: PROPOFOL DRIP 100 ML IV PRN (06:44)
[2023-09-20] MEDS: PANTOPRAZOLE SODIUM 40 MG/VIAL (PROTONIX) IVP SCH ×2 (09:05→21:21)
[2023-09-20] MEDS: MICAFUNGIN SODIUM 50 MG in NS 50 ML IV SCH (09:05)
[2023-09-20] MEDS: MULTIVITAMINS TAB 1 TABLET GT SCH (09:06)
[2023-09-20] MEDS: FUROSEMIDE 20 MG/2 ML VIAL IVP SCH ×2 (09:06→21:20)
[2023-09-20] MEDS: ASCORBIC ACID 500 MG TABLET GT SCH (09:06)
[2023-09-20] MEDS: methIMAzole 5 MG TABLET GT SCH (09:06)
[2023-09-20] MEDS: levETIRAcetam 500 MG in NS 100 ML IV SCH ×2 (09:08→21:21)
[2023-09-20] MEDS: CEFEPIME 2 GM in D5W 100 ML IV SCH (12:23)
[2023-09-20] MEDS: ENOXAPARIN SODIUM 30 MG/0.3 ML SYRINGE SUBCUT SCH (21:21)
[2023-09-21] VITALS (34 sets, daily range): BP systolic 112–156; PULSE 69–72; RESP 18–19; TEMP 96.9–97.9; O2SAT 93–99
[2023-09-21] MEDS: LevALBUTEROL HCL 1.25 MG/0.5 ML *CONC.* VIAL.NEB (XOPENEX CONC.) INH SCH ×4 (03:16→19:46)
[2023-09-21] MEDS: METHYLPREDNISOLONE SOD SUCC 40 MG/ML VIAL IVP SCH ×4 (05:28→23:16)
[2023-09-21] MEDS: INSULIN REGULAR, HUMAN 100 UNITS/ML, 3 ML VIAL (humuLIN R) SUBCUT PRN ×3 (05:29→23:15)
[2023-09-21 05:59] LABS: BASOPHILS % (AUTO) 0.1 % (0.0-2.0); EOSINOPHILS % (AUTO) 0.1 % (0.0-4.0); HEMATOCRIT 34.9 % (36-48); HEMOGLOBIN 11.4 g/dL (12.0-16.0); LYMPHOCYTES # (AUTO) 0.7 K/uL (1.0-5.5); LYMPHOCYTES % (AUTO) 4.6 % (20.5-51.5); MEAN CORPUSCULAR HEMOGLOBIN 30 pg (27-31); MEAN CORPUSCULAR HGB CONC 33 % (32-36); MEAN CORPUSCULAR VOLUME 92 fL (79.0-98.0); MONOCYTES % (AUTO) 6.7 % (1.7-9.3); NEUTROPHILS # (AUTO) 13.8 K/uL (1.8-7.7); NEUTROPHILS % (AUTO) 88.5 % (40.0-70.0); PLATELET COUNT (AUTO) 269 K/uL (130-430); RED BLOOD CELL COUNT(AUTO) 3.78 MIL/uL (4.2-6.2); RED CELL DISTRIBUTION WIDTH 16.7 % (9.0-15.0); WHITE BLOOD COUNT (AUTO) 15.6 K/uL (4.8-10.8)
[2023-09-21 06:06] LABS: ANION GAP 15 (5-15); CALCIUM 8.7 mg/dL (8.4-11.0); CARBON DIOXIDE 20 mmol/L (23-29); CHLORIDE 97 mmol/L (98-107); CREATININE 3.46 mg/dL (0.55-1.30); GLUCOSE 215 mg/dL (74-106); POTASSIUM 3.3 mmol/L (3.5-5.1); SODIUM SERUM 132 mmol/L (136-145); UREA NITROGEN, BLOOD 93 mg/dL (8-21)
[2023-09-21] MEDS ORDERED: POTASSIUM CHLORIDE 20 MEQ/PKT PACKET PO ONE (08:00)
[2023-09-21] MEDS: PANTOPRAZOLE SODIUM 40 MG/VIAL (PROTONIX) IVP SCH ×2 (08:33→20:05)
[2023-09-21] MEDS: FUROSEMIDE 20 MG/2 ML VIAL IVP SCH ×2 (08:34→20:09)
[2023-09-21] MEDS: ASCORBIC ACID 500 MG TABLET GT SCH (08:35)
[2023-09-21] MEDS: methIMAzole 5 MG TABLET GT SCH (08:35)
[2023-09-21] MEDS: MULTIVITAMINS TAB 1 TABLET GT SCH (08:35)
[2023-09-21] MEDS: MICAFUNGIN SODIUM 50 MG in NS 50 ML IV SCH (08:36)
[2023-09-21] MEDS: HEPARIN SODIUM,PORCINE 5,000 UNITS/ML VIAL MC PRN (09:16)
[2023-09-21] MEDS: levETIRAcetam 500 MG in NS 100 ML IV SCH ×2 (10:07→20:06)
[2023-09-21] MEDS: ENOXAPARIN SODIUM 30 MG/0.3 ML SYRINGE SUBCUT SCH (20:05)
[2023-09-22] VITALS (37 sets, daily range): BP systolic 108–145; PULSE 61–82; RESP 18; TEMP 96.5–98; O2SAT 95–98
[2023-09-22] MEDS: LevALBUTEROL HCL 1.25 MG/0.5 ML *CONC.* VIAL.NEB (XOPENEX CONC.) INH SCH ×4 (03:58→19:42)
[2023-09-22 05:14] LABS: BASOPHILS % (AUTO) 0.1 % (0.0-2.0); EOSINOPHILS % (AUTO) 0.1 % (0.0-4.0); HEMATOCRIT 35.1 % (36-48); HEMOGLOBIN 11.5 g/dL (12.0-16.0); LYMPHOCYTES # (AUTO) 0.9 K/uL (1.0-5.5); LYMPHOCYTES % (AUTO) 5.1 % (20.5-51.5); MEAN CORPUSCULAR HEMOGLOBIN 30 pg (27-31); MEAN CORPUSCULAR HGB CONC 33 % (32-36); MEAN CORPUSCULAR VOLUME 92 fL (79.0-98.0); MONOCYTES # (AUTO) 1.2 K/uL (0.0-1.0); MONOCYTES % (AUTO) 6.9 % (1.7-9.3); NEUTROPHILS # (AUTO) 15.1 K/uL (1.8-7.7); NEUTROPHILS % (AUTO) 87.8 % (40.0-70.0); PLATELET COUNT (AUTO) 288 K/uL (130-430); RED BLOOD CELL COUNT(AUTO) 3.81 MIL/uL (4.2-6.2); RED CELL DISTRIBUTION WIDTH 16.4 % (9.0-15.0); WHITE BLOOD COUNT (AUTO) 17.3 K/uL (4.8-10.8)
[2023-09-22] MEDS: INSULIN REGULAR, HUMAN 100 UNITS/ML, 3 ML VIAL (humuLIN R) SUBCUT PRN ×3 (05:29→18:17)
[2023-09-22] MEDS: METHYLPREDNISOLONE SOD SUCC 40 MG/ML VIAL IVP SCH ×3 (05:31→18:05)
[2023-09-22] MEDS: PROPOFOL DRIP 100 ML IV PRN (05:31)
[2023-09-22 05:40] LABS: ALANINE AMINOTRANSFERASE 23 U/L (12-78); ANION GAP 15 (5-15); ASPARTATE AMINOTRANSFERASE 15 U/L (10-37); CALCIUM 8.8 mg/dL (8.4-11.0); CARBON DIOXIDE 23 mmol/L (23-29); CHLORIDE 103 mmol/L (98-107); CREATININE 3.38 mg/dL (0.55-1.30); GLUCOSE 175 mg/dL (74-106); POTASSIUM 3.8 mmol/L (3.5-5.1); SODIUM SERUM 141 mmol/L (136-145); TOTAL BILIRUBIN 0.6 mg/dL (0.0-1.0); TOTAL PROTEIN, SERUM 4.9 g/dL (6.4-8.3); UREA NITROGEN, BLOOD 85 mg/dL (8-21)
[2023-09-22] MEDS: MICAFUNGIN SODIUM 50 MG in NS 50 ML IV SCH (08:24)
[2023-09-22] MEDS: methIMAzole 5 MG TABLET GT SCH (08:43)
[2023-09-22] MEDS: ASCORBIC ACID 500 MG TABLET GT SCH (08:43)
[2023-09-22] MEDS: MULTIVITAMINS TAB 1 TABLET GT SCH (08:43)
[2023-09-22] MEDS: PANTOPRAZOLE SODIUM 40 MG/VIAL (PROTONIX) IVP SCH ×2 (08:44→20:51)
[2023-09-22] MEDS: FUROSEMIDE 20 MG/2 ML VIAL IVP SCH ×2 (08:45→20:52)
[2023-09-22] MEDS: levETIRAcetam 500 MG in NS 100 ML IV SCH ×2 (08:46→20:52)
[2023-09-22 09:42] LABS: ABG O2 SAT% ESTIMATE 96.3 % (94.0-100.0); BLOOD GAS BASE EXCESS 0.4 mmol/L (-3.0-3.0); BLOOD GAS HCO3 22.2 mmol/L (21.0-27.0); BLOOD GAS PCO2 28.6 mmHg (35.0-45.0); BLOOD GAS PO2 74.5 mmHg (75.0-100.0)
[2023-09-22 09:46] LABS: BLOOD GAS PH 7.507 (7.350-7.450)
[2023-09-22 09:47] LABS: ALLEN'S TEST POSITIVE (P)
[2023-09-22] MEDS ORDERED: CEFEPIME 2 GM in D5W 100 ML IV SCH (12:00)
[2023-09-22] MEDS: CEFEPIME 1 GM in D5W 50 ML IV SCH (12:51)
[2023-09-22] MEDS: ENOXAPARIN SODIUM 30 MG/0.3 ML SYRINGE SUBCUT SCH (20:52)
[2023-09-23] VITALS (35 sets, daily range): BP systolic 119–171; PULSE 69–74; RESP 16–23; TEMP 96.1–98.2; O2SAT 96–99
[2023-09-23] MEDS: METHYLPREDNISOLONE SOD SUCC 40 MG/ML VIAL IVP SCH ×5 (00:07→23:12)
[2023-09-23] MEDS: INSULIN REGULAR, HUMAN 100 UNITS/ML, 3 ML VIAL (humuLIN R) SUBCUT PRN ×4 (00:08→23:13)
[2023-09-23] MEDS: LevALBUTEROL HCL 1.25 MG/0.5 ML *CONC.* VIAL.NEB (XOPENEX CONC.) INH SCH ×4 (00:50→19:37)
[2023-09-23 04:23] LABS: BASOPHILS % (AUTO) 0.2 % (0.0-2.0); EOSINOPHILS % (AUTO) 0.2 % (0.0-4.0); HEMATOCRIT 36.2 % (36-48); HEMOGLOBIN 11.7 g/dL (12.0-16.0); LYMPHOCYTES # (AUTO) 0.6 K/uL (1.0-5.5); LYMPHOCYTES % (AUTO) 3.4 % (20.5-51.5); MEAN CORPUSCULAR HEMOGLOBIN 30 pg (27-31); MEAN CORPUSCULAR HGB CONC 32 % (32-36); MEAN CORPUSCULAR VOLUME 93 fL (79.0-98.0); MONOCYTES # (AUTO) 0.9 K/uL (0.0-1.0); MONOCYTES % (AUTO) 4.9 % (1.7-9.3); NEUTROPHILS # (AUTO) 16.3 K/uL (1.8-7.7); NEUTROPHILS % (AUTO) 91.3 % (40.0-70.0); PLATELET COUNT (AUTO) 277 K/uL (130-430); RED BLOOD CELL COUNT(AUTO) 3.91 MIL/uL (4.2-6.2); RED CELL DISTRIBUTION WIDTH 16.9 % (9.0-15.0); WHITE BLOOD COUNT (AUTO) 17.8 K/uL (4.8-10.8)
[2023-09-23 04:41] LABS: ALANINE AMINOTRANSFERASE 25 U/L (12-78); ALBUMIN 1.9 g/dL (3.4-4.8); ANION GAP 16 (5-15); ASPARTATE AMINOTRANSFERASE 21 U/L (10-37); CALCIUM 8.7 mg/dL (8.4-11.0); CARBON DIOXIDE 23 mmol/L (23-29); CHLORIDE 102 mmol/L (98-107); CREATININE 3.88 mg/dL (0.55-1.30); GLUCOSE 208 mg/dL (74-106); POTASSIUM 3.9 mmol/L (3.5-5.1); SODIUM SERUM 141 mmol/L (136-145); TOTAL BILIRUBIN 0.6 mg/dL (0.0-1.0); TOTAL PROTEIN, SERUM 4.8 g/dL (6.4-8.3); UREA NITROGEN, BLOOD 99 mg/dL (8-21)
[2023-09-23] MEDS: FUROSEMIDE 20 MG/2 ML VIAL IVP SCH ×3 (09:00→21:07)
[2023-09-23] MEDS: levETIRAcetam 500 MG in NS 100 ML IV SCH ×2 (09:06→19:50)
[2023-09-23] MEDS: MICAFUNGIN SODIUM 50 MG in NS 50 ML IV SCH (09:07)
[2023-09-23] MEDS: MULTIVITAMINS TAB 1 TABLET GT SCH (09:08)
[2023-09-23] MEDS: PANTOPRAZOLE SODIUM 40 MG/VIAL (PROTONIX) IVP SCH ×2 (09:08→21:07)
[2023-09-23] MEDS: ASCORBIC ACID 500 MG TABLET GT SCH (09:08)
[2023-09-23] MEDS: methIMAzole 5 MG TABLET GT SCH (09:08)
[2023-09-23] MEDS ORDERED: ALBUMIN HUMAN 25% 100 ML IV ONE ×2 (10:38→10:45)
[2023-09-23] MEDS: HEPARIN SODIUM,PORCINE 5,000 UNITS/ML VIAL MC PRN (11:01)
[2023-09-23] MEDS: CEFEPIME 1 GM in D5W 50 ML IV SCH (12:12)
[2023-09-23 15:07] LABS: HEPATITIS A AB, IgM Negative (Negative); HEPATITIS B CORE AB, IgM Negative (Negative); HEPATITIS B SURFACE AG Negative (Negative); HEPATITIS C VIRUS AB Non Reactive (Non Reactive)
[2023-09-23 15:40] LABS: ABG O2 SAT% ESTIMATE 96.6 % (94.0-100.0); ALLEN'S TEST POSITIVE (P); BLOOD GAS BASE EXCESS -3.4 mmol/L (-3.0-3.0); BLOOD GAS HCO3 19.1 mmol/L (21.0-27.0); BLOOD GAS PH 7.451 (7.350-7.450); BLOOD GAS PO2 80.8 mmHg (75.0-100.0)
[2023-09-23] MEDS: ENOXAPARIN SODIUM 30 MG/0.3 ML SYRINGE SUBCUT SCH (21:07)
[2023-09-24] VITALS (35 sets, daily range): BP systolic 115–173; PULSE 69–117; RESP 15–20; TEMP 97.1–97.3; O2SAT 97–100
[2023-09-24] MEDS: LevALBUTEROL HCL 1.25 MG/0.5 ML *CONC.* VIAL.NEB (XOPENEX CONC.) INH SCH ×4 (00:49→19:35)
[2023-09-24 05:27] LABS: BASOPHILS % (AUTO) 0.1 % (0.0-2.0); HEMATOCRIT 32.8 % (36-48); HEMOGLOBIN 10.5 g/dL (12.0-16.0); LYMPHOCYTES # (AUTO) 0.9 K/uL (1.0-5.5); LYMPHOCYTES % (AUTO) 4.6 % (20.5-51.5); MEAN CORPUSCULAR HEMOGLOBIN 30 pg (27-31); MEAN CORPUSCULAR HGB CONC 32 % (32-36); MEAN CORPUSCULAR VOLUME 93 fL (79.0-98.0); MONOCYTES # (AUTO) 0.9 K/uL (0.0-1.0); MONOCYTES % (AUTO) 4.8 % (1.7-9.3); NEUTROPHILS % (AUTO) 90.5 % (40.0-70.0); PLATELET COUNT (AUTO) 305 K/uL (130-430); RED BLOOD CELL COUNT(AUTO) 3.54 MIL/uL (4.2-6.2); RED CELL DISTRIBUTION WIDTH 16.4 % (9.0-15.0); WHITE BLOOD COUNT (AUTO) 18.8 K/uL (4.8-10.8)
[2023-09-24] MEDS: METHYLPREDNISOLONE SOD SUCC 40 MG/ML VIAL IVP SCH ×4 (06:01→23:21)
[2023-09-24 06:04] LABS: ALANINE AMINOTRANSFERASE 28 U/L (12-78); ALBUMIN 2.5 g/dL (3.4-4.8); ANION GAP 16 (5-15); ASPARTATE AMINOTRANSFERASE 19 U/L (10-37); CALCIUM 8.7 mg/dL (8.4-11.0); CARBON DIOXIDE 22 mmol/L (23-29); CHLORIDE 101 mmol/L (98-107); GLUCOSE 270 mg/dL (74-106); POTASSIUM 3.8 mmol/L (3.5-5.1); SODIUM SERUM 139 mmol/L (136-145); TOTAL BILIRUBIN 0.5 mg/dL (0.0-1.0); TOTAL PROTEIN, SERUM 4.9 g/dL (6.4-8.3); UREA NITROGEN, BLOOD 95 mg/dL (8-21)
[2023-09-24] MEDS: INSULIN REGULAR, HUMAN 100 UNITS/ML, 3 ML VIAL (humuLIN R) SUBCUT PRN ×5 (06:04→23:23)
[2023-09-24] MEDS: MICAFUNGIN SODIUM 50 MG in NS 50 ML IV SCH (08:42)
[2023-09-24] MEDS: PANTOPRAZOLE SODIUM 40 MG/VIAL (PROTONIX) IVP SCH ×2 (08:43→20:32)
[2023-09-24] MEDS: MULTIVITAMINS TAB 1 TABLET GT SCH (08:43)
[2023-09-24] MEDS: FUROSEMIDE 20 MG/2 ML VIAL IVP SCH ×2 (08:43→20:32)
[2023-09-24] MEDS: methIMAzole 5 MG TABLET GT SCH (08:43)
[2023-09-24] MEDS: ASCORBIC ACID 500 MG TABLET GT SCH (08:43)
[2023-09-24] MEDS: levETIRAcetam 500 MG in NS 100 ML IV SCH ×2 (08:49→20:26)
[2023-09-24 12:06] LABS: QUANTIFERON TB GOLD Indeterminate (Negative)
[2023-09-24] MEDS: PIPERACILLIN/TAZO 2.25G/DEX-IS 50 ML IV SCH ×3 (12:19→23:21)
[2023-09-24] MEDS: ENOXAPARIN SODIUM 30 MG/0.3 ML SYRINGE SUBCUT SCH (20:32)
[2023-09-24] MEDS: cloNIDine HCL 0.1 MG TABLET GT PRN (22:31)
[2023-09-25] VITALS (36 sets, daily range): BP systolic 97–144; PULSE 69–73; RESP 14–23; TEMP 97.3–98.2; O2SAT 97–99
[2023-09-25] MEDS: LevALBUTEROL HCL 1.25 MG/0.5 ML *CONC.* VIAL.NEB (XOPENEX CONC.) INH SCH ×4 (01:09→19:52)
[2023-09-25 05:23] LABS: BASOPHILS % (AUTO) 0.2 % (0.0-2.0); HEMATOCRIT 30.6 % (36-48); HEMOGLOBIN 9.9 g/dL (12.0-16.0); LYMPHOCYTES # (AUTO) 0.5 K/uL (1.0-5.5); LYMPHOCYTES % (AUTO) 2.9 % (20.5-51.5); MEAN CORPUSCULAR HEMOGLOBIN 30 pg (27-31); MEAN CORPUSCULAR HGB CONC 33 % (32-36); MEAN CORPUSCULAR VOLUME 92 fL (79.0-98.0); MONOCYTES # (AUTO) 0.5 K/uL (0.0-1.0); MONOCYTES % (AUTO) 2.9 % (1.7-9.3); NEUTROPHILS # (AUTO) 16.3 K/uL (1.8-7.7); PLATELET COUNT (AUTO) 275 K/uL (130-430); RED BLOOD CELL COUNT(AUTO) 3.31 MIL/uL (4.2-6.2); RED CELL DISTRIBUTION WIDTH 16.5 % (9.0-15.0); WHITE BLOOD COUNT (AUTO) 17.3 K/uL (4.8-10.8)
[2023-09-25] MEDS: INSULIN REGULAR, HUMAN 100 UNITS/ML, 3 ML VIAL (humuLIN R) SUBCUT PRN ×4 (05:30→23:45)
[2023-09-25] MEDS: PIPERACILLIN/TAZO 2.25G/DEX-IS 50 ML IV SCH ×4 (05:30→23:45)
[2023-09-25] MEDS: METHYLPREDNISOLONE SOD SUCC 40 MG/ML VIAL IVP SCH ×4 (05:30→23:45)
[2023-09-25 05:49] LABS: ALANINE AMINOTRANSFERASE 29 U/L (12-78); ALBUMIN 2.2 g/dL (3.4-4.8); ANION GAP 18 (5-15); ASPARTATE AMINOTRANSFERASE 13 U/L (10-37); CALCIUM 8.6 mg/dL (8.4-11.0); CARBON DIOXIDE 20 mmol/L (23-29); CHLORIDE 100 mmol/L (98-107); CREATININE 4.38 mg/dL (0.55-1.30); GLUCOSE 251 mg/dL (74-106); POTASSIUM 3.9 mmol/L (3.5-5.1); SODIUM SERUM 138 mmol/L (136-145); TOTAL BILIRUBIN 0.6 mg/dL (0.0-1.0); TOTAL PROTEIN, SERUM 4.6 g/dL (6.4-8.3)
[2023-09-25 06:13] LABS: UREA NITROGEN, BLOOD 120 mg/dL (8-21)
[2023-09-25] MEDS ORDERED: ALBUMIN HUMAN 25% 100 ML IV ONE (07:30)
[2023-09-25] MEDS: HEPARIN SODIUM,PORCINE 5,000 UNITS/ML VIAL MC PRN (08:11)
[2023-09-25] MEDS: MICAFUNGIN SODIUM 50 MG in NS 50 ML IV SCH (10:09)
[2023-09-25] MEDS: levETIRAcetam 500 MG in NS 100 ML IV SCH ×2 (10:09→20:15)
[2023-09-25] MEDS: PANTOPRAZOLE SODIUM 40 MG/VIAL (PROTONIX) IVP SCH ×2 (10:10→20:16)
[2023-09-25] MEDS: ASCORBIC ACID 500 MG TABLET GT SCH (10:11)
[2023-09-25] MEDS: FUROSEMIDE 20 MG/2 ML VIAL IVP SCH ×2 (10:11→20:15)
[2023-09-25] MEDS: MULTIVITAMINS TAB 1 TABLET GT SCH (10:11)
[2023-09-25] MEDS: methIMAzole 5 MG TABLET GT SCH (10:11)
[2023-09-25] MEDS: MODAFINIL 100 MG TABLET (PROVIGIL) PO SCH (11:10)
[2023-09-25] MEDS: ENOXAPARIN SODIUM 30 MG/0.3 ML SYRINGE SUBCUT SCH (20:15)
[2023-09-26] VITALS (37 sets, daily range): BP systolic 100–139; PULSE 69–80; RESP 14–23; TEMP 97.8–98.9; O2SAT 97–100
[2023-09-26] MEDS: LevALBUTEROL HCL 1.25 MG/0.5 ML *CONC.* VIAL.NEB (XOPENEX CONC.) INH SCH ×4 (00:42→19:34)
[2023-09-26] MEDS: PIPERACILLIN/TAZO 2.25G/DEX-IS 50 ML IV SCH ×4 (05:32→23:36)
[2023-09-26] MEDS: METHYLPREDNISOLONE SOD SUCC 40 MG/ML VIAL IVP SCH ×4 (05:32→23:37)
[2023-09-26 05:35] LABS: BASOPHILS % (AUTO) 0.1 % (0.0-2.0); HEMATOCRIT 27.1 % (36-48); HEMOGLOBIN 8.8 g/dL (12.0-16.0); LYMPHOCYTES # (AUTO) 0.6 K/uL (1.0-5.5); LYMPHOCYTES % (AUTO) 3.3 % (20.5-51.5); MEAN CORPUSCULAR HEMOGLOBIN 30 pg (27-31); MEAN CORPUSCULAR HGB CONC 32 % (32-36); MEAN CORPUSCULAR VOLUME 93 fL (79.0-98.0); MONOCYTES # (AUTO) 0.5 K/uL (0.0-1.0); MONOCYTES % (AUTO) 2.7 % (1.7-9.3); NEUTROPHILS # (AUTO) 16.8 K/uL (1.8-7.7); NEUTROPHILS % (AUTO) 93.9 % (40.0-70.0); PLATELET COUNT (AUTO) 255 K/uL (130-430); RED BLOOD CELL COUNT(AUTO) 2.94 MIL/uL (4.2-6.2); RED CELL DISTRIBUTION WIDTH 16.4 % (9.0-15.0); WHITE BLOOD COUNT (AUTO) 17.9 K/uL (4.8-10.8)
[2023-09-26] MEDS: INSULIN REGULAR, HUMAN 100 UNITS/ML, 3 ML VIAL (humuLIN R) SUBCUT PRN ×4 (05:37→23:52)
[2023-09-26 06:04] LABS: ALANINE AMINOTRANSFERASE 41 U/L (12-78); ALBUMIN 2.5 g/dL (3.4-4.8); ANION GAP 16 (5-15); ASPARTATE AMINOTRANSFERASE 20 U/L (10-37); CALCIUM 8.7 mg/dL (8.4-11.0); CARBON DIOXIDE 22 mmol/L (23-29); CHLORIDE 99 mmol/L (98-107); CREATININE 3.96 mg/dL (0.55-1.30); GLUCOSE 269 mg/dL (74-106); POTASSIUM 3.7 mmol/L (3.5-5.1); SODIUM SERUM 137 mmol/L (136-145); TOTAL BILIRUBIN 0.6 mg/dL (0.0-1.0); TOTAL PROTEIN, SERUM 4.6 g/dL (6.4-8.3)
[2023-09-26 06:26] LABS: UREA NITROGEN, BLOOD 101 mg/dL (8-21)
[2023-09-26] MEDS: methIMAzole 5 MG TABLET GT SCH (08:34)
[2023-09-26] MEDS: PANTOPRAZOLE SODIUM 40 MG/VIAL (PROTONIX) IVP SCH ×2 (08:34→20:41)
[2023-09-26] MEDS: MULTIVITAMINS TAB 1 TABLET GT SCH (08:34)
[2023-09-26] MEDS: MODAFINIL 100 MG TABLET (PROVIGIL) PO SCH (08:34)
[2023-09-26] MEDS: ASCORBIC ACID 500 MG TABLET GT SCH (08:34)
[2023-09-26] MEDS: FUROSEMIDE 20 MG/2 ML VIAL IVP SCH ×2 (08:36→20:41)
[2023-09-26] MEDS: levETIRAcetam 500 MG in NS 100 ML IV SCH ×2 (08:37→20:40)
[2023-09-26] MEDS: MICAFUNGIN SODIUM 50 MG in NS 50 ML IV SCH (10:02)
[2023-09-26] MEDS: ENOXAPARIN SODIUM 30 MG/0.3 ML SYRINGE SUBCUT SCH (20:42)
[2023-09-27] VITALS (36 sets, daily range): BP systolic 94–171; PULSE 69–83; RESP 14–19; TEMP 96.9–97.8; O2SAT 96–100
[2023-09-27] MEDS: LevALBUTEROL HCL 1.25 MG/0.5 ML *CONC.* VIAL.NEB (XOPENEX CONC.) INH SCH ×4 (01:17→19:43)
[2023-09-27] MEDS ORDERED: METHYLPREDNISOLONE SOD SUCC 40 MG/ML VIAL ONE (05:48)
[2023-09-27] MEDS: PIPERACILLIN/TAZO 2.25G/DEX-IS 50 ML IV SCH ×4 (05:51→23:44)
[2023-09-27] MEDS: METHYLPREDNISOLONE SOD SUCC 40 MG/ML VIAL IVP SCH ×4 (05:52→23:44)
[2023-09-27] MEDS: INSULIN REGULAR, HUMAN 100 UNITS/ML, 3 ML VIAL (humuLIN R) SUBCUT PRN ×4 (05:54→23:50)
[2023-09-27 06:35] LABS: HEMATOCRIT 26.5 % (36-48); HEMOGLOBIN 8.7 g/dL (12.0-16.0); LYMPHOCYTES # (AUTO) 0.5 K/uL (1.0-5.5); LYMPHOCYTES % (AUTO) 3.8 % (20.5-51.5); MEAN CORPUSCULAR HEMOGLOBIN 30 pg (27-31); MEAN CORPUSCULAR HGB CONC 33 % (32-36); MEAN CORPUSCULAR VOLUME 92 fL (79.0-98.0); MONOCYTES # (AUTO) 0.4 K/uL (0.0-1.0); NEUTROPHILS # (AUTO) 13.6 K/uL (1.8-7.7); NEUTROPHILS % (AUTO) 93.2 % (40.0-70.0); PLATELET COUNT (AUTO) 210 K/uL (130-430); RED BLOOD CELL COUNT(AUTO) 2.89 MIL/uL (4.2-6.2); RED CELL DISTRIBUTION WIDTH 15.7 % (9.0-15.0); WHITE BLOOD COUNT (AUTO) 14.6 K/uL (4.8-10.8)
[2023-09-27 06:49] LABS: ALANINE AMINOTRANSFERASE 37 U/L (12-78); ALBUMIN 2.1 g/dL (3.4-4.8); ANION GAP 18 (5-15); ASPARTATE AMINOTRANSFERASE 13 U/L (10-37); CALCIUM 8.6 mg/dL (8.4-11.0); CARBON DIOXIDE 20 mmol/L (23-29); CHLORIDE 95 mmol/L (98-107); CREATININE 4.46 mg/dL (0.55-1.30); FREE T4 (FREE THYROXINE) 0.7 ng/dL (0.6-1.6); GLUCOSE 272 mg/dL (74-106); POTASSIUM 3.5 mmol/L (3.5-5.1); SODIUM SERUM 133 mmol/L (136-145); THYROID STIMULATING HORMONE 0.05 uIu/mL (0.34-4.82); TOTAL BILIRUBIN 0.5 mg/dL (0.0-1.0); TOTAL PROTEIN, SERUM 4.4 g/dL (6.4-8.3)
[2023-09-27 06:55] LABS: UREA NITROGEN, BLOOD 123 mg/dL (8-21)
[2023-09-27] MEDS: FUROSEMIDE 20 MG/2 ML VIAL IVP SCH ×2 (08:34→21:15)
[2023-09-27] MEDS: PANTOPRAZOLE SODIUM 40 MG/VIAL (PROTONIX) IVP SCH ×2 (08:35→21:15)
[2023-09-27] MEDS: MODAFINIL 100 MG TABLET (PROVIGIL) PO SCH (08:35)
[2023-09-27] MEDS: ASCORBIC ACID 500 MG TABLET GT SCH (08:35)
[2023-09-27] MEDS: MULTIVITAMINS TAB 1 TABLET GT SCH (08:36)
[2023-09-27] MEDS: methIMAzole 5 MG TABLET GT SCH (08:36)
[2023-09-27] MEDS: levETIRAcetam 500 MG in NS 100 ML IV SCH ×2 (08:37→21:16)
[2023-09-27] MEDS: MICAFUNGIN SODIUM 50 MG in NS 50 ML IV SCH (09:53)
[2023-09-27] MEDS ORDERED: ALBUMIN HUMAN 25% 200 ML IV ONE (11:00)
[2023-09-27] MEDS: HEPARIN SODIUM,PORCINE 5,000 UNITS/ML VIAL MC PRN (12:12)
[2023-09-27] MEDS: ENOXAPARIN SODIUM 30 MG/0.3 ML SYRINGE SUBCUT SCH (21:15)
[2023-09-28] VITALS (36 sets, daily range): BP systolic 97–133; PULSE 69–79; RESP 14–19; TEMP 96.7–97.9; O2SAT 99–100
[2023-09-28] MEDS: LevALBUTEROL HCL 1.25 MG/0.5 ML *CONC.* VIAL.NEB (XOPENEX CONC.) INH SCH ×4 (03:23→19:33)
[2023-09-28 04:35] LABS: BASOPHILS # (AUTO) 0.1 K/uL (0.0-0.2); BASOPHILS % (AUTO) 0.8 % (0.0-2.0); EOSINOPHILS % (AUTO) 0.1 % (0.0-4.0); HEMATOCRIT 25.1 % (36-48); HEMOGLOBIN 8.3 g/dL (12.0-16.0); LYMPHOCYTES # (AUTO) 0.5 K/uL (1.0-5.5); LYMPHOCYTES % (AUTO) 3.8 % (20.5-51.5); MEAN CORPUSCULAR HEMOGLOBIN 30 pg (27-31); MEAN CORPUSCULAR HGB CONC 33 % (32-36); MEAN CORPUSCULAR VOLUME 92 fL (79.0-98.0); MONOCYTES # (AUTO) 0.5 K/uL (0.0-1.0); MONOCYTES % (AUTO) 3.4 % (1.7-9.3); NEUTROPHILS % (AUTO) 91.9 % (40.0-70.0); PLATELET COUNT (AUTO) 184 K/uL (130-430); RED BLOOD CELL COUNT(AUTO) 2.75 MIL/uL (4.2-6.2); RED CELL DISTRIBUTION WIDTH 15.8 % (9.0-15.0); WHITE BLOOD COUNT (AUTO) 14.2 K/uL (4.8-10.8)
[2023-09-28 05:11] LABS: ALANINE AMINOTRANSFERASE 35 U/L (12-78); ALBUMIN 2.7 g/dL (3.4-4.8); ANION GAP 15 (5-15); ASPARTATE AMINOTRANSFERASE 14 U/L (10-37); CALCIUM 8.9 mg/dL (8.4-11.0); CARBON DIOXIDE 25 mmol/L (23-29); CHLORIDE 99 mmol/L (98-107); GLUCOSE 262 mg/dL (74-106); POTASSIUM 3.9 mmol/L (3.5-5.1); SODIUM SERUM 139 mmol/L (136-145); TOTAL BILIRUBIN 0.6 mg/dL (0.0-1.0); TOTAL PROTEIN, SERUM 4.6 g/dL (6.4-8.3)
[2023-09-28] MEDS: METHYLPREDNISOLONE SOD SUCC 40 MG/ML VIAL IVP SCH ×4 (05:15→23:13)
[2023-09-28] MEDS: PIPERACILLIN/TAZO 2.25G/DEX-IS 50 ML IV SCH ×2 (05:15→10:18)
[2023-09-28] MEDS: INSULIN REGULAR, HUMAN 100 UNITS/ML, 3 ML VIAL (humuLIN R) SUBCUT PRN ×3 (05:24→23:12)
[2023-09-28 05:58] LABS: UREA NITROGEN, BLOOD 110 mg/dL (8-21)
[2023-09-28] MEDS: MODAFINIL 100 MG TABLET (PROVIGIL) PO SCH (10:11)
[2023-09-28] MEDS: ASCORBIC ACID 500 MG TABLET GT SCH (10:12)
[2023-09-28] MEDS: MULTIVITAMINS TAB 1 TABLET GT SCH (10:12)
[2023-09-28] MEDS: methIMAzole 5 MG TABLET GT SCH (10:12)
[2023-09-28] MEDS: FUROSEMIDE 20 MG/2 ML VIAL IVP SCH ×2 (10:13→20:11)
[2023-09-28] MEDS: PANTOPRAZOLE SODIUM 40 MG/VIAL (PROTONIX) IVP SCH ×2 (10:16→20:11)
[2023-09-28] MEDS: MICAFUNGIN SODIUM 50 MG in NS 50 ML IV SCH (10:17)
[2023-09-28] MEDS: levETIRAcetam 500 MG in NS 100 ML IV SCH ×2 (10:18→20:10)
[2023-09-28] MEDS: HEPARIN SODIUM,PORCINE 5,000 UNITS/ML VIAL MC PRN (10:20)
[2023-09-28] MEDS: LEVOFLOXACIN 250 MG/D5W 50 ML IV SCH (11:25)
[2023-09-28] MEDS: ENOXAPARIN SODIUM 30 MG/0.3 ML SYRINGE SUBCUT SCH (20:11)
[2023-09-29] VITALS (30 sets, daily range): BP systolic 107–164; PULSE 69–73; RESP 14–22; TEMP 97.2–97.5; O2SAT 94–100
[2023-09-29] MEDS: LevALBUTEROL HCL 1.25 MG/0.5 ML *CONC.* VIAL.NEB (XOPENEX CONC.) INH SCH ×4 (00:02→20:06)
[2023-09-29 04:41] LABS: BASOPHILS % (AUTO) 0.1 % (0.0-2.0); HEMATOCRIT 24.3 % (36-48); HEMOGLOBIN 7.9 g/dL (12.0-16.0); LYMPHOCYTES # (AUTO) 0.5 K/uL (1.0-5.5); LYMPHOCYTES % (AUTO) 3.2 % (20.5-51.5); MEAN CORPUSCULAR HEMOGLOBIN 30 pg (27-31); MEAN CORPUSCULAR HGB CONC 32 % (32-36); MEAN CORPUSCULAR VOLUME 92 fL (79.0-98.0); MONOCYTES # (AUTO) 0.4 K/uL (0.0-1.0); MONOCYTES % (AUTO) 3.1 % (1.7-9.3); NEUTROPHILS # (AUTO) 13.3 K/uL (1.8-7.7); NEUTROPHILS % (AUTO) 93.6 % (40.0-70.0); PLATELET COUNT (AUTO) 150 K/uL (130-430); RED BLOOD CELL COUNT(AUTO) 2.64 MIL/uL (4.2-6.2); RED CELL DISTRIBUTION WIDTH 15.8 % (9.0-15.0); WHITE BLOOD COUNT (AUTO) 14.2 K/uL (4.8-10.8)
[2023-09-29 05:05] LABS: ALANINE AMINOTRANSFERASE 34 U/L (12-78); ALBUMIN 2.3 g/dL (3.4-4.8); ANION GAP 14 (5-15); ASPARTATE AMINOTRANSFERASE 15 U/L (10-37); CALCIUM 9.1 mg/dL (8.4-11.0); CARBON DIOXIDE 23 mmol/L (23-29); CHLORIDE 94 mmol/L (98-107); CREATININE 3.53 mg/dL (0.55-1.30); GLUCOSE 310 mg/dL (74-106); POTASSIUM 3.5 mmol/L (3.5-5.1); SODIUM SERUM 131 mmol/L (136-145); TOTAL BILIRUBIN 0.5 mg/dL (0.0-1.0); TOTAL PROTEIN, SERUM 4.7 g/dL (6.4-8.3); UREA NITROGEN, BLOOD 92 mg/dL (8-21)
[2023-09-29] MEDS ORDERED: METHYLPREDNISOLONE SOD SUCC 40 MG/ML VIAL ONE ×2 (05:23→05:29)
[2023-09-29] MEDS: METHYLPREDNISOLONE SOD SUCC 40 MG/ML VIAL IVP SCH ×4 (05:36→23:48)
[2023-09-29] MEDS: INSULIN REGULAR, HUMAN 100 UNITS/ML, 3 ML VIAL (humuLIN R) SUBCUT PRN ×2 (05:38→23:52)
[2023-09-29] MEDS: MODAFINIL 100 MG TABLET (PROVIGIL) PO SCH (09:34)
[2023-09-29] MEDS: MULTIVITAMINS TAB 1 TABLET GT SCH (09:34)
[2023-09-29] MEDS: ASCORBIC ACID 500 MG TABLET GT SCH (09:34)
[2023-09-29] MEDS: PANTOPRAZOLE SODIUM 40 MG/VIAL (PROTONIX) IVP SCH ×2 (09:35→20:23)
[2023-09-29] MEDS: methIMAzole 5 MG TABLET GT SCH (09:35)
[2023-09-29] MEDS: FUROSEMIDE 20 MG/2 ML VIAL IVP SCH ×2 (09:36→20:23)
[2023-09-29] MEDS: MICAFUNGIN SODIUM 50 MG in NS 50 ML IV SCH (09:37)
[2023-09-29] MEDS: LEVOFLOXACIN 250 MG/D5W 50 ML IV SCH (09:38)
[2023-09-29] MEDS: levETIRAcetam 500 MG in NS 100 ML IV SCH ×2 (09:38→20:23)
[2023-09-29] MEDS: ENOXAPARIN SODIUM 30 MG/0.3 ML SYRINGE SUBCUT SCH (20:23)
[2023-09-30] VITALS (30 sets, daily range): BP systolic 79–160; PULSE 69–74; RESP 14–22; TEMP 97.1–98.7; O2SAT 93–100
[2023-09-30] MEDS: LevALBUTEROL HCL 1.25 MG/0.5 ML *CONC.* VIAL.NEB (XOPENEX CONC.) INH SCH ×4 (04:20→19:36)
[2023-09-30 04:45] LABS: BASOPHILS % (AUTO) 0.1 % (0.0-2.0); HEMATOCRIT 22.9 % (36-48); HEMOGLOBIN 7.4 g/dL (12.0-16.0); LYMPHOCYTES # (AUTO) 0.5 K/uL (1.0-5.5); MEAN CORPUSCULAR HEMOGLOBIN 30 pg (27-31); MEAN CORPUSCULAR HGB CONC 33 % (32-36); MEAN CORPUSCULAR VOLUME 91 fL (79.0-98.0); MONOCYTES # (AUTO) 0.4 K/uL (0.0-1.0); MONOCYTES % (AUTO) 2.9 % (1.7-9.3); NEUTROPHILS # (AUTO) 14.3 K/uL (1.8-7.7); PLATELET COUNT (AUTO) 134 K/uL (130-430); RED BLOOD CELL COUNT(AUTO) 2.51 MIL/uL (4.2-6.2); RED CELL DISTRIBUTION WIDTH 15.8 % (9.0-15.0); WHITE BLOOD COUNT (AUTO) 15.2 K/uL (4.8-10.8)
[2023-09-30 05:16] LABS: ALANINE AMINOTRANSFERASE 31 U/L (12-78); ALBUMIN 2.1 g/dL (3.4-4.8); ANION GAP 18 (5-15); ASPARTATE AMINOTRANSFERASE 12 U/L (10-37); CALCIUM 8.5 mg/dL (8.4-11.0); CARBON DIOXIDE 22 mmol/L (23-29); CHLORIDE 97 mmol/L (98-107); CREATININE 4.02 mg/dL (0.55-1.30); GLUCOSE 268 mg/dL (74-106); POTASSIUM 3.8 mmol/L (3.5-5.1); SODIUM SERUM 137 mmol/L (136-145); TOTAL BILIRUBIN 0.4 mg/dL (0.0-1.0); TOTAL PROTEIN, SERUM 4.2 g/dL (6.4-8.3)
[2023-09-30] MEDS: METHYLPREDNISOLONE SOD SUCC 40 MG/ML VIAL IVP SCH ×4 (05:16→23:35)
[2023-09-30] MEDS: INSULIN REGULAR, HUMAN 100 UNITS/ML, 3 ML VIAL (humuLIN R) SUBCUT PRN ×4 (05:23→23:37)
[2023-09-30 05:30] LABS: UREA NITROGEN, BLOOD 118 mg/dL (8-21)
[2023-09-30] MEDS: FUROSEMIDE 20 MG/2 ML VIAL IVP SCH ×2 (09:00→20:52)
[2023-09-30] MEDS: ASCORBIC ACID 500 MG TABLET GT SCH (09:23)
[2023-09-30] MEDS: levETIRAcetam 500 MG in NS 100 ML IV SCH ×2 (09:23→20:53)
[2023-09-30] MEDS: MODAFINIL 100 MG TABLET (PROVIGIL) PO SCH (09:23)
[2023-09-30] MEDS: MULTIVITAMINS TAB 1 TABLET GT SCH (09:24)
[2023-09-30] MEDS: methIMAzole 5 MG TABLET GT SCH (09:24)
[2023-09-30] MEDS: MICAFUNGIN SODIUM 50 MG in NS 50 ML IV SCH (09:27)
[2023-09-30] MEDS: PANTOPRAZOLE SODIUM 40 MG/VIAL (PROTONIX) IVP SCH ×2 (09:27→20:48)
[2023-09-30] MEDS ORDERED: HEPARIN SODIUM,PORCINE 5,000 UNITS/ML VIAL ONE (10:05)
[2023-09-30] MEDS ORDERED: ALBUMIN HUMAN 25% 100 ML IV ONE ×2 (10:10→10:30)
[2023-09-30] MEDS: HEPARIN SODIUM,PORCINE 5,000 UNITS/ML VIAL MC PRN (10:37)
[2023-09-30] MEDS ORDERED: ALBUMIN HUMAN 25% 200 ML IV ONE (10:45)
[2023-09-30] MEDS: LEVOFLOXACIN 250 MG/D5W 50 ML IV SCH (11:00)
[2023-09-30 17:04] LABS: ABG O2 SAT% ESTIMATE 98.2 % (94.0-100.0); BLOOD GAS BASE EXCESS -1.5 mmol/L (-3.0-3.0); BLOOD GAS HCO3 22.3 mmol/L (21.0-27.0); BLOOD GAS PCO2 35.1 mmHg (35.0-45.0); BLOOD GAS PH 7.421 (7.350-7.450); BLOOD GAS PO2 112.1 mmHg (75.0-100.0)
[2023-09-30 17:09] LABS: ALLEN'S TEST POSITIVE (P)
[2023-09-30] MEDS: ENOXAPARIN SODIUM 30 MG/0.3 ML SYRINGE SUBCUT SCH (20:53)
[2023-10-01] VITALS (29 sets, daily range): BP systolic 104–158; PULSE 62–76; RESP 9–22; TEMP 97.2–98.2; O2SAT 92–100
[2023-10-01] MEDS: LevALBUTEROL HCL 1.25 MG/0.5 ML *CONC.* VIAL.NEB (XOPENEX CONC.) INH SCH ×4 (00:05→19:36)
[2023-10-01 04:37] LABS: LYMPHOCYTES # (AUTO) 0.6 K/uL (1.0-5.5); LYMPHOCYTES % (AUTO) 3.3 % (20.5-51.5); MEAN CORPUSCULAR HEMOGLOBIN 30 pg (27-31); MEAN CORPUSCULAR HGB CONC 32 % (32-36); MEAN CORPUSCULAR VOLUME 92 fL (79.0-98.0); MONOCYTES # (AUTO) 0.5 K/uL (0.0-1.0); MONOCYTES % (AUTO) 2.7 % (1.7-9.3); NEUTROPHILS # (AUTO) 16.4 K/uL (1.8-7.7); PLATELET COUNT (AUTO) 109 K/uL (130-430); RED CELL DISTRIBUTION WIDTH 15.8 % (9.0-15.0); WHITE BLOOD COUNT (AUTO) 17.5 K/uL (4.8-10.8)
[2023-10-01 05:04] LABS: ALANINE AMINOTRANSFERASE 332 U/L (12-78); ALBUMIN 3.1 g/dL (3.4-4.8); ANION GAP 19 (5-15); ASPARTATE AMINOTRANSFERASE 110 U/L (10-37); CARBON DIOXIDE 24 mmol/L (23-29); CHLORIDE 96 mmol/L (98-107); CREATININE 3.31 mg/dL (0.55-1.30); GLUCOSE 297 mg/dL (74-106); POTASSIUM 3.5 mmol/L (3.5-5.1); SODIUM SERUM 139 mmol/L (136-145); TOTAL BILIRUBIN 0.6 mg/dL (0.0-1.0); TOTAL PROTEIN, SERUM 4.7 g/dL (6.4-8.3); UREA NITROGEN, BLOOD 94 mg/dL (8-21)
[2023-10-01 05:26] LABS: RED BLOOD CELL COUNT(AUTO) 1.91 MIL/uL (4.2-6.2)
[2023-10-01 05:34] LABS: HEMATOCRIT 17.6 % (36-48); HEMOGLOBIN 5.7 g/dL (12.0-16.0)
[2023-10-01] MEDS: METHYLPREDNISOLONE SOD SUCC 40 MG/ML VIAL IVP SCH ×4 (05:34→23:37)
[2023-10-01] MEDS: INSULIN REGULAR, HUMAN 100 UNITS/ML, 3 ML VIAL (humuLIN R) SUBCUT PRN ×4 (05:39→23:43)
[2023-10-01] MEDS: methIMAzole 5 MG TABLET GT SCH (09:00)
[2023-10-01] MEDS: MODAFINIL 100 MG TABLET (PROVIGIL) PO SCH (09:00)
[2023-10-01] MEDS: ASCORBIC ACID 500 MG TABLET GT SCH (09:00)
[2023-10-01] MEDS: levETIRAcetam 500 MG in NS 100 ML IV SCH ×2 (09:00→20:24)
[2023-10-01] MEDS: MULTIVITAMINS TAB 1 TABLET GT SCH (09:00)
[2023-10-01] MEDS: FUROSEMIDE 20 MG/2 ML VIAL IVP SCH ×2 (09:01→20:25)
[2023-10-01] MEDS: PANTOPRAZOLE SODIUM 40 MG/VIAL (PROTONIX) IVP SCH ×2 (09:02→20:24)
[2023-10-01] MEDS: LEVOFLOXACIN 250 MG/D5W 50 ML IV SCH (11:43)
[2023-10-01] MEDS: metroNIDAZOLE 250 mg/NS 50 ML IV SCH ×2 (15:19→22:08)
[2023-10-01] MEDS ORDERED: MENTHOL/ZINC OXIDE 113 GM OINT. TP PRN (16:45)
[2023-10-01] MEDS: ENOXAPARIN SODIUM 30 MG/0.3 ML SYRINGE SUBCUT SCH (20:24)
[2023-10-02] VITALS (32 sets, daily range): BP systolic 100–175; PULSE 69–78; RESP 14–30; TEMP 97.4–98.1; O2SAT 91–99
[2023-10-02] MEDS: LevALBUTEROL HCL 1.25 MG/0.5 ML *CONC.* VIAL.NEB (XOPENEX CONC.) INH SCH ×4 (00:05→19:51)
[2023-10-02 04:43] LABS: BASOPHILS # (AUTO) 0.1 K/uL (0.0-0.2); BASOPHILS % (AUTO) 0.3 % (0.0-2.0); EOSINOPHILS # (AUTO) 0.1 K/uL (0.0-0.4); EOSINOPHILS % (AUTO) 0.3 % (0.0-4.0); HEMATOCRIT 28.4 % (36-48); HEMOGLOBIN 9.6 g/dL (12.0-16.0); LYMPHOCYTES # (AUTO) 0.5 K/uL (1.0-5.5); LYMPHOCYTES % (AUTO) 2.5 % (20.5-51.5); MEAN CORPUSCULAR HEMOGLOBIN 31 pg (27-31); MEAN CORPUSCULAR HGB CONC 34 % (32-36); MEAN CORPUSCULAR VOLUME 91 fL (79.0-98.0); MONOCYTES # (AUTO) 0.3 K/uL (0.0-1.0); MONOCYTES % (AUTO) 1.5 % (1.7-9.3); NEUTROPHILS # (AUTO) 20.5 K/uL (1.8-7.7); NEUTROPHILS % (AUTO) 95.4 % (40.0-70.0); PLATELET COUNT (AUTO) 106 K/uL (130-430); RED BLOOD CELL COUNT(AUTO) 3.14 MIL/uL (4.2-6.2); RED CELL DISTRIBUTION WIDTH 14.9 % (9.0-15.0); WHITE BLOOD COUNT (AUTO) 21.5 K/uL (4.8-10.8)
[2023-10-02 05:04] LABS: ALANINE AMINOTRANSFERASE 416 U/L (12-78); ALBUMIN 2.6 g/dL (3.4-4.8); ANION GAP 21 (5-15); ASPARTATE AMINOTRANSFERASE 121 U/L (10-37); CALCIUM 9.1 mg/dL (8.4-11.0); CARBON DIOXIDE 21 mmol/L (23-29); CHLORIDE 92 mmol/L (98-107); CREATININE 3.79 mg/dL (0.55-1.30); GLUCOSE 349 mg/dL (74-106); POTASSIUM 3.5 mmol/L (3.5-5.1); SODIUM SERUM 134 mmol/L (136-145); TOTAL BILIRUBIN 1.2 mg/dL (0.0-1.0)
[2023-10-02 05:27] LABS: UREA NITROGEN, BLOOD 121 mg/dL (8-21)
[2023-10-02] MEDS: metroNIDAZOLE 250 mg/NS 50 ML IV SCH ×3 (05:34→23:03)
[2023-10-02] MEDS: METHYLPREDNISOLONE SOD SUCC 40 MG/ML VIAL IVP SCH ×4 (05:34→23:51)
[2023-10-02] MEDS: INSULIN REGULAR, HUMAN 100 UNITS/ML, 3 ML VIAL (humuLIN R) SUBCUT PRN ×4 (05:41→23:56)
[2023-10-02] MEDS ORDERED: ALBUMIN HUMAN 25% 100 ML IV ONE ×2 (10:51→11:00)
[2023-10-02] MEDS ORDERED: HEPARIN SODIUM,PORCINE 5,000 UNITS/ML VIAL ONE (10:52)
[2023-10-02] MEDS: MODAFINIL 100 MG TABLET (PROVIGIL) PO SCH (11:32)
[2023-10-02] MEDS: MULTIVITAMINS TAB 1 TABLET GT SCH (11:32)
[2023-10-02] MEDS: PANTOPRAZOLE SODIUM 40 MG/VIAL (PROTONIX) IVP SCH ×2 (11:33→21:46)
[2023-10-02] MEDS: ASCORBIC ACID 500 MG TABLET GT SCH (11:33)
[2023-10-02] MEDS: methIMAzole 5 MG TABLET GT SCH (11:33)
[2023-10-02] MEDS: FUROSEMIDE 20 MG/2 ML VIAL IVP SCH ×2 (11:35→21:48)
[2023-10-02] MEDS: levETIRAcetam 500 MG in NS 100 ML IV SCH ×2 (11:37→21:48)
[2023-10-02] MEDS: LEVOFLOXACIN 250 MG/D5W 50 ML IV SCH (11:39)
[2023-10-02] MEDS: ENOXAPARIN SODIUM 30 MG/0.3 ML SYRINGE SUBCUT SCH (21:48)
[2023-10-03] VITALS (11 sets, daily range): BP systolic 142–165; PULSE 66–70; RESP 16–24; TEMP 97.7–98.8; O2SAT 94–99
[2023-10-03] MEDS: LevALBUTEROL HCL 1.25 MG/0.5 ML *CONC.* VIAL.NEB (XOPENEX CONC.) INH SCH ×4 (02:12→19:45)
[2023-10-03] MEDS: metroNIDAZOLE 250 mg/NS 50 ML IV SCH ×3 (06:22→22:52)
[2023-10-03] MEDS: METHYLPREDNISOLONE SOD SUCC 40 MG/ML VIAL IVP SCH ×4 (06:23→23:41)
[2023-10-03] MEDS: INSULIN REGULAR, HUMAN 100 UNITS/ML, 3 ML VIAL (humuLIN R) SUBCUT PRN ×3 (06:30→17:11)
[2023-10-03] MEDS: PANTOPRAZOLE SODIUM 40 MG/VIAL (PROTONIX) IVP SCH ×2 (10:11→22:52)
[2023-10-03] MEDS: ASCORBIC ACID 500 MG TABLET GT SCH (10:11)
[2023-10-03] MEDS: FUROSEMIDE 20 MG/2 ML VIAL IVP SCH ×2 (10:12→22:51)
[2023-10-03] MEDS: MODAFINIL 100 MG TABLET (PROVIGIL) PO SCH (10:13)
[2023-10-03] MEDS: MULTIVITAMINS TAB 1 TABLET GT SCH (10:13)
[2023-10-03] MEDS: levETIRAcetam 500 MG in NS 100 ML IV SCH ×2 (10:13→22:50)
[2023-10-03] MEDS: methIMAzole 5 MG TABLET GT SCH (10:27)
[2023-10-03] MEDS: LEVOFLOXACIN 250 MG/D5W 50 ML IV SCH (11:47)
[2023-10-03] MEDS: ENOXAPARIN SODIUM 30 MG/0.3 ML SYRINGE SUBCUT SCH (22:52)
[2023-10-04] VITALS (17 sets, daily range): BP systolic 92–166; PULSE 69–73; RESP 18–22; TEMP 96.1–98.2; O2SAT 2–100
[2023-10-04] MEDS: METHYLPREDNISOLONE SOD SUCC 40 MG/ML VIAL IVP SCH (06:13)
[2023-10-04] MEDS: metroNIDAZOLE 250 mg/NS 50 ML IV SCH ×2 (06:14→14:48)
[2023-10-04 06:24] LABS: HEMATOCRIT 25.4 % (36-48); HEMOGLOBIN 8.3 g/dL (12.0-16.0); MEAN CORPUSCULAR HEMOGLOBIN 30 pg (27-31); MEAN CORPUSCULAR HGB CONC 33 % (32-36); MEAN CORPUSCULAR VOLUME 93 fL (79.0-98.0); PLATELET COUNT (AUTO) 102 K/uL (130-430); RED BLOOD CELL COUNT(AUTO) 2.74 MIL/uL (4.2-6.2); WHITE BLOOD COUNT (AUTO) 21.5 K/uL (4.8-10.8)
[2023-10-04 06:39] LABS: ALANINE AMINOTRANSFERASE 743 U/L (12-78); ALBUMIN 2.5 g/dL (3.4-4.8); ANION GAP 22 (5-15); ASPARTATE AMINOTRANSFERASE 237 U/L (10-37); CALCIUM 9.3 mg/dL (8.4-11.0); CARBON DIOXIDE 19 mmol/L (23-29); CHLORIDE 97 mmol/L (98-107); CREATININE 4.25 mg/dL (0.55-1.30); POTASSIUM 4.1 mmol/L (3.5-5.1); SODIUM SERUM 138 mmol/L (136-145); TOTAL BILIRUBIN 1.4 mg/dL (0.0-1.0); TOTAL PROTEIN, SERUM 4.9 g/dL (6.4-8.3)
[2023-10-04 07:13] LABS: GLUCOSE 451 mg/dL (74-106); UREA NITROGEN, BLOOD 138 mg/dL (8-21)
[2023-10-04] MEDS: LevALBUTEROL HCL 1.25 MG/0.5 ML *CONC.* VIAL.NEB (XOPENEX CONC.) INH SCH ×3 (07:19→20:11)
[2023-10-04 08:49] LABS: BASOPHILS % (MANUAL) 0 % (0-2); EOSINOPHILS % (MANUAL) 0 % (0-7); LYMPHOCYTES % (MANUAL) 4 % (20-46); MONOCYTES % (MANUAL) 3 % (0-11)
[2023-10-04 08:50] LABS: PLATELET ESTIMATE DECREASED (ADEQUATE); POLYCHROMASIA SLIGHT
[2023-10-04] MEDS: ASCORBIC ACID 500 MG TABLET GT SCH (10:27)
[2023-10-04] MEDS: MODAFINIL 100 MG TABLET (PROVIGIL) PO SCH (10:27)
[2023-10-04] MEDS: MULTIVITAMINS TAB 1 TABLET GT SCH (10:27)
[2023-10-04] MEDS: FUROSEMIDE 20 MG/2 ML VIAL IVP SCH (10:28)
[2023-10-04] MEDS: methIMAzole 5 MG TABLET GT SCH (10:28)
[2023-10-04] MEDS: PANTOPRAZOLE SODIUM 40 MG/VIAL (PROTONIX) IVP SCH (10:28)
[2023-10-04] MEDS: levETIRAcetam 500 MG in NS 100 ML IV SCH (10:37)
[2023-10-04] MEDS: LEVOFLOXACIN 250 MG/D5W 50 ML IV SCH (11:43)
[2023-10-04] MEDS: INSULIN REGULAR, HUMAN 100 UNITS/ML, 3 ML VIAL (humuLIN R) SUBCUT PRN ×2 (11:46→18:42)
[2023-10-04] MEDS ORDERED: ALBUMIN HUMAN 25% 100 ML IV ONE ×2 (14:45)
[2023-10-05] VITALS (18 sets, daily range): BP systolic 102–129; PULSE 68–78; RESP 18–23; TEMP 96.3–98.4; O2SAT 92–100
[2023-10-05] MEDS: FUROSEMIDE 20 MG/2 ML VIAL IVP SCH ×3 (00:07→22:25)
[2023-10-05] MEDS: levETIRAcetam 500 MG in NS 100 ML IV SCH ×3 (00:10→22:24)
[2023-10-05] MEDS: METHYLPREDNISOLONE SOD SUCC 40 MG/ML VIAL IVP SCH ×3 (00:11→22:23)
[2023-10-05] MEDS: PANTOPRAZOLE SODIUM 40 MG/VIAL (PROTONIX) IVP SCH ×3 (00:36→22:23)
[2023-10-05] MEDS: metroNIDAZOLE 250 mg/NS 50 ML IV SCH ×4 (00:40→22:46)
[2023-10-05] MEDS: LevALBUTEROL HCL 1.25 MG/0.5 ML *CONC.* VIAL.NEB (XOPENEX CONC.) INH SCH ×4 (01:09→19:31)
[2023-10-05] MEDS: INSULIN REGULAR, HUMAN 100 UNITS/ML, 3 ML VIAL (humuLIN R) SUBCUT PRN ×4 (01:14→18:02)
[2023-10-05 04:23] LABS: BASOPHILS % (AUTO) 0.2 % (0.0-2.0); EOSINOPHILS % (AUTO) 0.3 % (0.0-4.0); LYMPHOCYTES # (AUTO) 0.8 K/uL (1.0-5.5); MEAN CORPUSCULAR HEMOGLOBIN 31 pg (27-31); MEAN CORPUSCULAR HGB CONC 33 % (32-36); MEAN CORPUSCULAR VOLUME 93 fL (79.0-98.0); MONOCYTES # (AUTO) 0.3 K/uL (0.0-1.0); MONOCYTES % (AUTO) 2.3 % (1.7-9.3); NEUTROPHILS # (AUTO) 12.3 K/uL (1.8-7.7); NEUTROPHILS % (AUTO) 91.2 % (40.0-70.0); PLATELET COUNT (AUTO) 77 K/uL (130-430); RED BLOOD CELL COUNT(AUTO) 2.16 MIL/uL (4.2-6.2); RED CELL DISTRIBUTION WIDTH 15.7 % (9.0-15.0); WHITE BLOOD COUNT (AUTO) 13.4 K/uL (4.8-10.8)
[2023-10-05 04:33] LABS: ALANINE AMINOTRANSFERASE 840 U/L (12-78); ALBUMIN 3.3 g/dL (3.4-4.8); ANION GAP 18 (5-15); ASPARTATE AMINOTRANSFERASE 273 U/L (10-37); CALCIUM 9.4 mg/dL (8.4-11.0); CARBON DIOXIDE 23 mmol/L (23-29); CHLORIDE 99 mmol/L (98-107); CREATININE 3.39 mg/dL (0.55-1.30); GLUCOSE 342 mg/dL (74-106); POTASSIUM 3.7 mmol/L (3.5-5.1); SODIUM SERUM 140 mmol/L (136-145); TOTAL BILIRUBIN 1.3 mg/dL (0.0-1.0); TOTAL PROTEIN, SERUM 5.1 g/dL (6.4-8.3)
[2023-10-05 04:44] LABS: HEMATOCRIT 20.2 % (36-48); HEMOGLOBIN 6.6 g/dL (12.0-16.0)
[2023-10-05 04:46] LABS: UREA NITROGEN, BLOOD 118 mg/dL (8-21)
[2023-10-05] MEDS: ASCORBIC ACID 500 MG TABLET GT SCH (10:12)
[2023-10-05] MEDS: MODAFINIL 100 MG TABLET (PROVIGIL) PO SCH (10:12)
[2023-10-05] MEDS: MULTIVITAMINS TAB 1 TABLET GT SCH (10:13)
[2023-10-05] MEDS: methIMAzole 5 MG TABLET GT SCH (10:16)
[2023-10-05] MEDS: LEVOFLOXACIN 250 MG/D5W 50 ML IV SCH (10:38)
[2023-10-05 16:21] LABS: ABG O2 SAT% ESTIMATE 95.3 % (94.0-100.0); BLOOD GAS PH 7.427 (7.350-7.450)
[2023-10-05 16:27] LABS: ALLEN'S TEST POSITIVE (P); BLOOD GAS BASE EXCESS -6.2 mmol/L (-3.0-3.0); BLOOD GAS HCO3 16.1 mmol/L (21.0-27.0)
[2023-10-05 16:28] LABS: BLOOD GAS PO2 72.9 mmHg (75.0-100.0)
[2023-10-05] MEDS ORDERED: EPOETIN ALFA-EPBX 3,000 UNITS/ML VIAL SUBCUT SCH (17:00)
[2023-10-05] MEDS ORDERED: SODIUM BICARBONATE 8.4% JECT 50 MEQ/50 ML SYRINGE IVP ONE (17:00)
[2023-10-05] MEDS: ENOXAPARIN SODIUM 30 MG/0.3 ML SYRINGE SUBCUT SCH ×2 (22:23)
[2023-10-05] MEDS: SODIUM BICARBONATE 650 MG TABLET PO SCH (22:23)
[2023-10-06] VITALS (17 sets, daily range): BP systolic 111–132; PULSE 64–79; RESP 16–22; TEMP 96.7–98.9; O2SAT 92–98
[2023-10-06] MEDS: LevALBUTEROL HCL 1.25 MG/0.5 ML *CONC.* VIAL.NEB (XOPENEX CONC.) INH SCH ×4 (01:36→19:36)
[2023-10-06] MEDS: INSULIN REGULAR, HUMAN 100 UNITS/ML, 3 ML VIAL (humuLIN R) SUBCUT PRN ×4 (02:07→18:20)
[2023-10-06 04:25] LABS: BASOPHILS % (AUTO) 0.1 % (0.0-2.0); EOSINOPHILS % (AUTO) 0.1 % (0.0-4.0); HEMATOCRIT 32.1 % (36-48); HEMOGLOBIN 10.7 g/dL (12.0-16.0); LYMPHOCYTES # (AUTO) 0.6 K/uL (1.0-5.5); LYMPHOCYTES % (AUTO) 5.2 % (20.5-51.5); MEAN CORPUSCULAR HEMOGLOBIN 30 pg (27-31); MEAN CORPUSCULAR HGB CONC 33 % (32-36); MEAN CORPUSCULAR VOLUME 88 fL (79.0-98.0); MONOCYTES # (AUTO) 0.2 K/uL (0.0-1.0); MONOCYTES % (AUTO) 1.3 % (1.7-9.3); NEUTROPHILS # (AUTO) 10.6 K/uL (1.8-7.7); NEUTROPHILS % (AUTO) 93.3 % (40.0-70.0); PLATELET COUNT (AUTO) 54 K/uL (130-430); RED BLOOD CELL COUNT(AUTO) 3.63 MIL/uL (4.2-6.2); RED CELL DISTRIBUTION WIDTH 16.8 % (9.0-15.0); WHITE BLOOD COUNT (AUTO) 11.3 K/uL (4.8-10.8)
[2023-10-06 04:44] LABS: ALANINE AMINOTRANSFERASE 753 U/L (12-78); ALBUMIN 2.5 g/dL (3.4-4.8); ANION GAP 17 (5-15); ASPARTATE AMINOTRANSFERASE 248 U/L (10-37); CALCIUM 9.1 mg/dL (8.4-11.0); CARBON DIOXIDE 24 mmol/L (23-29); CHLORIDE 101 mmol/L (98-107); CREATININE 2.83 mg/dL (0.55-1.30); SODIUM SERUM 142 mmol/L (136-145); TOTAL BILIRUBIN 2.5 mg/dL (0.0-1.0); TOTAL PROTEIN, SERUM 4.6 g/dL (6.4-8.3)
[2023-10-06] MEDS: metroNIDAZOLE 250 mg/NS 50 ML IV SCH ×3 (05:31→23:37)
[2023-10-06 06:26] LABS: GLUCOSE 450 mg/dL (74-106); UREA NITROGEN, BLOOD 105 mg/dL (8-21)
[2023-10-06] MEDS ORDERED: INSULIN REGULAR, HUMAN 100 UNITS/ML, 3 ML VIAL SUBCUT ONE (06:34)
[2023-10-06] MEDS: METHYLPREDNISOLONE SOD SUCC 40 MG/ML VIAL IVP SCH ×2 (09:19→23:36)
[2023-10-06] MEDS: PANTOPRAZOLE SODIUM 40 MG/VIAL (PROTONIX) IVP SCH ×2 (09:20→23:37)
[2023-10-06] MEDS: ASCORBIC ACID 500 MG TABLET GT SCH (09:21)
[2023-10-06] MEDS: MULTIVITAMINS TAB 1 TABLET GT SCH (09:21)
[2023-10-06] MEDS: FUROSEMIDE 20 MG/2 ML VIAL IVP SCH ×2 (09:21→23:36)
[2023-10-06] MEDS: SODIUM BICARBONATE 650 MG TABLET PO SCH ×2 (09:21→23:57)
[2023-10-06] MEDS: MODAFINIL 100 MG TABLET (PROVIGIL) PO SCH (09:21)
[2023-10-06] MEDS: levETIRAcetam 500 MG in NS 100 ML IV SCH ×2 (09:22→23:39)
[2023-10-06] MEDS: methIMAzole 5 MG TABLET GT SCH (09:41)
[2023-10-06] MEDS: LEVOFLOXACIN 250 MG/D5W 50 ML IV SCH (10:41)
[2023-10-06 14:43] LABS: BLOOD GAS HCO3 20.5 mmol/L (21.0-27.0); BLOOD GAS PCO2 43.4 mmHg (35.0-45.0); BLOOD GAS PH 7.293 (7.350-7.450); BLOOD GAS PO2 71.4 mmHg (75.0-100.0)
[2023-10-06 14:44] LABS: ABG O2 SAT% ESTIMATE 92.7 % (94.0-100.0); ALLEN'S TEST POSITIVE (P); BLOOD GAS BASE EXCESS -5.8 mmol/L (-3.0-3.0)
[2023-10-06] MEDS: ENOXAPARIN SODIUM 30 MG/0.3 ML SYRINGE SUBCUT SCH (23:39)
[2023-10-07 00:13] VITALS: BP_SYST 88; PULSE 69; RESP 24; TEMP 96.8; O2SAT 94
[2023-10-07] MEDS: LevALBUTEROL HCL 1.25 MG/0.5 ML *CONC.* VIAL.NEB (XOPENEX CONC.) INH SCH ×2 (01:07→07:15)
[2023-10-07 01:11] VITALS: PULSE 69
[2023-10-07] MEDS: INSULIN REGULAR, HUMAN 100 UNITS/ML, 3 ML VIAL (humuLIN R) SUBCUT PRN ×2 (01:16→06:40)
[2023-10-07 03:43] VITALS: PULSE 69
[2023-10-07 04:00] VITALS: BP_SYST 90; PULSE 70; RESP 22; TEMP 97.4; O2SAT 93
[2023-10-07 05:09] VITALS: PULSE 69
[2023-10-07 05:21] LABS: BASOPHILS # (AUTO) 0.1 K/uL (0.0-0.2); EOSINOPHILS # (AUTO) 0.1 K/uL (0.0-0.4); EOSINOPHILS % (AUTO) 1.5 % (0.0-4.0); HEMATOCRIT 29.4 % (36-48); HEMOGLOBIN 9.8 g/dL (12.0-16.0); LYMPHOCYTES # (AUTO) 0.8 K/uL (1.0-5.5); LYMPHOCYTES % (AUTO) 11.4 % (20.5-51.5); MEAN CORPUSCULAR HEMOGLOBIN 30 pg (27-31); MEAN CORPUSCULAR HGB CONC 33 % (32-36); MEAN CORPUSCULAR VOLUME 89 fL (79.0-98.0); MONOCYTES # (AUTO) 0.2 K/uL (0.0-1.0); MONOCYTES % (AUTO) 2.1 % (1.7-9.3); RED BLOOD CELL COUNT(AUTO) 3.31 MIL/uL (4.2-6.2); RED CELL DISTRIBUTION WIDTH 17.3 % (9.0-15.0); WHITE BLOOD COUNT (AUTO) 7.3 K/uL (4.8-10.8)
[2023-10-07 05:31] LABS: ALANINE AMINOTRANSFERASE 472 U/L (12-78); ALBUMIN 1.8 g/dL (3.4-4.8); ANION GAP 17 (5-15); ASPARTATE AMINOTRANSFERASE 154 U/L (10-37); CARBON DIOXIDE 23 mmol/L (23-29); CHLORIDE 103 mmol/L (98-107); CREATININE 3.33 mg/dL (0.55-1.30); FREE T4 (FREE THYROXINE) 0.7 ng/dL (0.6-1.6); GLUCOSE 344 mg/dL (74-106); PHOSPHORUS 7.2 mg/dL (2.7-4.5); POTASSIUM 3.4 mmol/L (3.5-5.1); SODIUM SERUM 143 mmol/L (136-145); THYROID STIMULATING HORMONE 0.01 uIu/mL (0.34-4.82); TOTAL BILIRUBIN 1.8 mg/dL (0.0-1.0)
[2023-10-07 06:23] LABS: UREA NITROGEN, BLOOD 135 mg/dL (8-21)
[2023-10-07] MEDS: metroNIDAZOLE 250 mg/NS 50 ML IV SCH (06:23)
[2023-10-07 08:16] LABS: PLATELET COUNT (AUTO) 32 K/uL (130-430)
[2023-10-07] MEDS ORDERED: NEPHROVITE, (FOLIC ACID/VITAMIN B COMP W-C 1 TAB) PO SCH (09:00)
== END 2023-10-07 07:48 | DRG 870 ==
LOC: SED 16:24 → SIC 20:14 → STU 10-01 20:15 → SIC 10-01 20:46 → STU 10-03 03:00
PROVIDERS: ADMIT Family Medicine; ATTEND Family Medicine
PROC: 5A1955Z Respiratory Ventilation, Greater than 96 Consecutive Hours (ICD-10-PCS; principal; 2023-09-13)
PROC: 0BJ08ZZ Inspection of Tracheobronchial Tree, Via Natural or Artificial Opening Endoscopic (ICD-10-PCS; 2023-09-16)
PROC: 30233K1 Transfusion of Nonautologous Frozen Plasma into Peripheral Vein, Percutaneous Approach (ICD-10-PCS; 2023-09-16)
PROC: 5A1D70Z Performance of Urinary Filtration, Intermittent, Less than 6 Hours Per Day (ICD-10-PCS; 2023-09-17)
PROC: 02HV33Z Insertion of Infusion Device into Superior Vena Cava, Percutaneous Approach (ICD-10-PCS; 2023-09-18)
PROC: B548ZZA Ultrasonography of Superior Vena Cava, Guidance (ICD-10-PCS; 2023-09-18)
PROC: 5A1D70Z Performance of Urinary Filtration, Intermittent, Less than 6 Hours Per Day (ICD-10-PCS; 2023-09-19)
PROC: 5A1D70Z Performance of Urinary Filtration, Intermittent, Less than 6 Hours Per Day (ICD-10-PCS; 2023-09-21)
PROC: 5A1D70Z Performance of Urinary Filtration, Intermittent, Less than 6 Hours Per Day (ICD-10-PCS; 2023-09-23)
PROC: 5A1D70Z Performance of Urinary Filtration, Intermittent, Less than 6 Hours Per Day (ICD-10-PCS; 2023-09-25)
PROC: 5A1D70Z Performance of Urinary Filtration, Intermittent, Less than 6 Hours Per Day (ICD-10-PCS; 2023-09-27)
PROC: 5A1D70Z Performance of Urinary Filtration, Intermittent, Less than 6 Hours Per Day (ICD-10-PCS; 2023-09-28)
PROC: 5A1D70Z Performance of Urinary Filtration, Intermittent, Less than 6 Hours Per Day (ICD-10-PCS; 2023-09-30)
PROC: 5A09357 Assistance with Respiratory Ventilation, Less than 24 Consecutive Hours, Continuous Positive Airway Pressure (ICD-10-PCS; 2023-09-30)
PROC: 5A09357 Assistance with Respiratory Ventilation, Less than 24 Consecutive Hours, Continuous Positive Airway Pressure (ICD-10-PCS; 2023-10-01)
PROC: 5A1D70Z Performance of Urinary Filtration, Intermittent, Less than 6 Hours Per Day (ICD-10-PCS; 2023-10-02)
PROC: 5A09357 Assistance with Respiratory Ventilation, Less than 24 Consecutive Hours, Continuous Positive Airway Pressure (ICD-10-PCS; 2023-10-02)
PROC: 5A09357 Assistance with Respiratory Ventilation, Less than 24 Consecutive Hours, Continuous Positive Airway Pressure (ICD-10-PCS; 2023-10-03)
PROC: 5A1D70Z Performance of Urinary Filtration, Intermittent, Less than 6 Hours Per Day (ICD-10-PCS; 2023-10-04)
PROC: 5A09357 Assistance with Respiratory Ventilation, Less than 24 Consecutive Hours, Continuous Positive Airway Pressure (ICD-10-PCS; 2023-10-04)
PROC: 30233N1 Transfusion of Nonautologous Red Blood Cells into Peripheral Vein, Percutaneous Approach (ICD-10-PCS; 2023-10-05)
PROC: 5A09457 Assistance with Respiratory Ventilation, 24-96 Consecutive Hours, Continuous Positive Airway Pressure (ICD-10-PCS; 2023-10-05)
PROC: 5A1D70Z Performance of Urinary Filtration, Intermittent, Less than 6 Hours Per Day (ICD-10-PCS; 2023-10-06)
PROC: 5A1D70Z Performance of Urinary Filtration, Intermittent, Less than 6 Hours Per Day (ICD-10-PCS; 2023-10-07)
DX: A41.9 Sepsis, unspecified organism (principal); J96.01 Acute respiratory failure with hypoxia; G93.41 Metabolic encephalopathy; J15.69 Pneumonia due to other Gram-negative bacteria; I24.89 Other forms of acute ischemic heart disease; Z99.11 Dependence on respirator [ventilator] status; N17.9 Acute kidney failure, unspecified; R04.2 Hemoptysis; N39.0 Urinary tract infection, site not specified; I13.0 Hypertensive heart and chronic kidney disease with heart failure and stage 1 through stage 4 chronic kidney disease, or unspecified chronic kidney disease; F03.90 Unspecified dementia, unspecified severity, without behavioral disturbance, psychotic disturbance, mood disturbance, and anxiety; H54.8 Legal blindness, as defined in USA; I48.91 Unspecified atrial fibrillation; I50.9 Heart failure, unspecified; N18.9 Chronic kidney disease, unspecified; D64.9 Anemia, unspecified; Y95 Nosocomial condition; D69.6 Thrombocytopenia, unspecified; E03.9 Hypothyroidism, unspecified; Z95.0 Presence of cardiac pacemaker; Z93.1 Gastrostomy status; Z90.49 Acquired absence of other specified parts of digestive tract; Z87.01 Personal history of pneumonia (recurrent); Z86.73 Personal history of transient ischemic attack (TIA), and cerebral infarction without residual deficits; Z86.16 Personal history of COVID-19; Z82.49 Family history of ischemic heart disease and other diseases of the circulatory system; Z79.899 Other long term (current) drug therapy; Z74.01 Bed confinement status; Z88.8 Allergy status to other drugs, medicaments and biological substances
CPT/HCPCS: 36415; 36600; 70450-TC; 71045; 71250-TC; 76376; 76770; 80048; 80053; 80074; 80202; 80307; 81000; 81001; 81015; 82009; 82140; 82550; 82607; 82728; 82746; 82803; 82962; 83516; 83540; 83550; 83605; 83880; 84100; 84439; 84443; 84484; 85007; 85025; 85027; 85379; 85384; 85610-TC; 85730-TC; 86038; 86256; 86480; 86886; 86900; 86901; 86920; 87040; 87070-TC; 87081; 87101; 87116; 87205-TC; 87230-TC; 87305; 90937; 93005; 94002; 94003; 94640; 94660; 94760; 96361; 96365; 96367; 96375; 99291; C9113; G0378; G0480; G0481; G0482; J0360; J0456; J0692; J0696; J1030; J1265; J1644; J1650; J1815; J1940; J1953; J1956; J2001; J2310; J2543; J2704; J2930; J3010; J3370; J3480; J3490; J7030; J7050; J7060; J7612; P9021; P9046; P9059; Q5106